=== PATIENT | female | born 1985 | race Caucasian/White ===

== ENCOUNTER → 2019-01-10 10:19 | Outpatient (CLI) | payer OTHER, SELFPAY ==
[2019-01-10 11:56] LABS: hCG Titer Quant., Serum 21428 mIU/mL (1-3)
== END ==
PROVIDERS: Nurse Practitioner Women's Health; Family Provider Family Medicine; PCP Family Medicine; Referring Provider Obstetrics & Gynecology; Visit Provider Obstetrics & Gynecology
DX: O20.0 Threatened abortion (principal); Z3A.00 Weeks of gestation of pregnancy not specified
CPT/HCPCS: 36415; 84702

== ENCOUNTER → 2019-01-18 07:54 | Outpatient (CLI) | payer OTHER, SELFPAY ==
--- NOTE | 2019-01-18 08:00 | US_ITS ---
STUDY: FIRST TRIMESTER OBSTETRICAL ULTRASOUND REASON FOR EXAM: Female, 33 years old viability. LMP: November 17, 2018. TECHNIQUE: Transabdominal and Transvaginal TECHNICAL QUALITY: Adequate. PRIOR ULTRASOUND: None. FINDINGS: There is visualization of a single gestational sac in a normal intrauterine position. The mean sac diameter (MSD) measures 1.22 cm, indicating an estimated gestational age (EGA) of 5 weeks, 6 days. The gestational sac is irregular and filled with debris. I suspect subchorionic bleed surrounding. There is no demonstrated yolk sac. The placenta is non-visualized. There is no demonstrated embryo ( pole). The uterus measures 8.2 cm x 4 cm x 3.6 cm. There is no demonstrated uterine fibroid. The cervix is closed. The right ovary measures 3 cm x 2.3 cm x 1.5 cm. There is no right ovarian cyst. There is no visualized right adnexal mass or complex lesion. The left ovary measures 3.6 cm x 2.5 cm x 1.7 cm. There is no left ovarian cyst. There is no visualized left adnexal mass or complex lesion. There is no fluid in the cul de sac. US/Init OB < 14Wks US IMPRESSION: Irregular intrauterine gestational sac with debris. Finding suggestive of in progress. Electronically Signed: Abelardo Hartley, at 11:18 EDT , Service support ,
== END ==
PROVIDERS: Family Provider Family Medicine; PCP Family Medicine; Referring Provider Obstetrics & Gynecology; Visit Provider Obstetrics & Gynecology
DX: Z34.90 Encounter for supervision of normal pregnancy, unspecified, unspecified trimester (principal); Z3A.00 Weeks of gestation of pregnancy not specified
CPT/HCPCS: 76801

== ENCOUNTER 2019-01-30 13:08 | Day surgery (SDC) | payer OTHER, SELFPAY ==
[2019-01-26 12:14] VITALS: BMI 21.5
--- NOTE | 2019-01-27 04:39 | PCM.HPOB.BLA ---
- Problem List (1) Incomplete Status: Acute Comment: failed cytotec plan suction d and c History and Physical Date of Admission: 01/30/19 Intake Vital Signs 01/26/19 Body Mass Index (BMI) 21.5 01/26/19 Height 5 ft 1.5 in 01/26/19 Weight: 115 lb 8 oz 01/26/19 Body Mass Index (BMI) 21.4 01/26/19 Blood Pressure 116/82 H Intake Visit Reasons: rescan missed AB Chief Complaint: SAB Follow Up Chemist Internship Required: No Is patient in pain?: No Allergies No Known Allergies Allergy (Verified 01/26/19 12:13) Medications misoprostol 200 mcg tablet 800 mcg PO .complex #4 tab 01/22/19 [Rx Confirmed 01/26/19] oxycodone-acetaminophen 5 mg-325 mg tablet 1 tab PO Q4H PRN #20 tab 01/22/19 [Rx Confirmed 01/26/19] Is last menstrual period known: No Post menopausal: No Patient : No : No PFSH Medical History No significant past medical history (Acute) Surgical History No significant past surgical history (Acute) Family History Grandmother Breast cancer Grandmother Breast cancer Social History (Updated 01/26/19 @ 22:24 by Holly Ocampo MD) Smoking Status: Never smoker alcohol intake: never substance use type: does not use HPI rescan missed AB: Details: JOYCE AMANDA is a 33 year old who presents for follow up scan and has persistent iup. she has taken two doses of cytotec and had some bleeding but no passage of tissue.. she denies fever. Pregancy History 1 Elective abortions Hx Para Spontaneous abortions Hx # Term Pregnancies Ectopic pregnancies Hx # Pregnancies Multiple births # of living children ROS Const Constitutional: Denies fatigue, fever(s), headache(s), increased appetite, poor appetite, weight gain or weight loss ENT ENT: Denies dizziness or dry mouth Cardio Card: Denies chest pain Resp Resp: Denies cough or dyspnea GI GI: Reports as per HPI; denies abdominal pain, constipation, nausea or vomiting Musc Musc: Denies joint pain, back pain or muscle weakness Skin Skin/Breast: Denies hair loss, change in hair, dry skin, breast lump, breast pain or breast skin changes Neuro Neuro: Denies dizziness Psych Psych: Denies anxiety or depression Endo Endo: Denies cold intolerance, excessive sweating, heat intolerance or increased thirst Jaron/Lymph Hematologic/Lymphatic: Denies easy bleeding, Denies easy bruising, Denies enlarged lymph nodes Exam Const General: cooperative, healthy appearing, comfortable, no acute distress, well developed Nutritional Appearance: average body habitus Orientation: alert [facility] Head: normal to inspection, normocephalic Ears: hearing grossly normal bilaterally, external ears normal Nose: external nose normal, nares normal Face and sinus: normal facial exam Neck Neck: normal visual inspection, no lymphadenopathy, trachea midline Thyroid: thyroid normal Chest Chest palpation & inspection: normal inspection of the chest Resp Effort & Inspection: normal respiratory effort Auscultation: clear to auscultation bilaterally Cardio Rate: regular rate Rhythm: regular rhythm Heart Sounds: S1 normal, S2 normal GI Inspection: normal to inspection, non-distended Palpation: soft, no hepatosplenomegaly General: bladder normal to palpation External Female Exam: normal external appearance, normal appearance of the urethra Urethra: normal appearance of the urethra, normal palpation, no discharge Speculum Exam - Vagina: normal appearance of the vagina, normal vaginal discharge Speculum Exam - Cervix: normal appearance of the cervix, nontender Bimanual Exam- Vagina & Uterus: normal bimanual exam, normal vaginal palpation, uterine size normal, bladder normal to palpation, uterine shape normal, No cervical tenderness, uterine mobility normal, uterine consistency normal, normal cervical palpation, uterus non-tender Bimanual Exam- Adnexa, other: normal adnexae, adnexae mobile, no adnexal masses, pelvic support normal Pelvic Support: normal Musc Cervical Spine: other Other: gross motor intact no deficits, full bilateral strength Skin General: no rashes or lesions noted Neuro General: alert, awake, moves all extremities, no focal motor deficits Motor: muscle tone normal throughout Extrem General: normal to inspection, no pedal edema Psych Appearance: grossly normal Mental Status: mental status grossly normal Affect: normal affect Speech and Movement: speech and movement normal Assessment & Plan Problems 1. Incomplete O03.4 failed cytotec plan suction d and c Plan After discussing the patient's diagnosis and treatment plan options, patient wishes to proceed with surgical management. I have discussed with the patient the risks, benefits, and alternatives of the procedure which include but are not limited to risks of anesthesia, bleeding, infection, possible damage to bowel, bladder, or surrounding vasculature which could lead to additional surgery to evaluate any complications. Patient agrees to procedure and wishes to proceed. Coding Level of Care Code No Charge Diagnoses Incomplete O03.4
[2019-01-30 13:36] LABS: Hematocrit 40.4 % (37-47); Hemoglobin 13.8 g/dL (12.0-15.0); Mean Corp Hgb Conc 34.2 g/dL (32-36); Mean Corpuscular Hgb 28.7 pg (27.0-32.0); Mean Platelet Vol. 10.3 fl (6.2-12.0); Platelet Count 169 K/mm3 (150-450); RBC Distribution Width CV 11.8 % (11.6-14.6); RBC Distribution Width SD 35.8 fl (35.1-43.9); Red Blood Count 4.81 M/mm3 (4.2-5.4); White Blood Count 8.6 K/mm3 (4.4-11.0)
[2019-01-30 13:41] VITALS: BP 109/66; PULSE 60; RESP 16; TEMP 36.5; O2SAT 99; BMI 21.7
[2019-01-30] MEDS: Lactated Ringers 1,000 ML 100 ML IV (14:12)
[2019-01-30] MEDS: Doxycycline 100 MG CAPSULE PO (14:23)
--- NOTE | 2019-01-30 14:33 | PCM.OPRPT ---
Problem List (1) Incomplete Status: Acute Comment: failed cytotec plan suction d and c Report of Operation Date of Procedure: 01/30/19 Pre-Operative Diagnosis: incomplete Post-Operative Diagnosis: same Surgery/Procedure Performed:: suction d and c Description of Surgical Findings:: 7 week size Type of Anesthesia:: Local MAC Special Medications: none Specimen's removed: poc Drains: none Estimated Blood Loss (mL): 50 Fluids Replaced: crystalloid Description of Procedure: Patient was taken to the operating room and placed under MAC local anesthesia. She was prepped and draped in the normal sterile fashion the dorsal lithotomy position. Bladder was drained of clear urine and anterior lip of the cervix was grasped and the uterus sounded to 7 cm. Cervix was progressively dilated to allow passage of a 1 mm suction curette. Progressive passes were made removing the retained products of conception without complication. Sharp curettage confirmed complete removal of the retained products. A stitch was used to sew the anterior lip of the cervix where the tenaculum site was that had some bleeding. All instruments were removed from the vagina and excellent hemostasis was noted and the patient was taken to recovery in stable condition. Grafts/Implants Used: none - Complications none Multi Select Codes - Urinary/Genital Urinary/Genital CPT Codes: 03222 Trmt of incomplete Ab, any TM
--- NOTE | 2019-01-30 14:35 | DCINST_ITS ---
Discharge Diet: No Restrictions Discharge Activity: Return to Normal Activity, May Shower, May Take a Tub Bath Allergies/Adverse Reactions: Allergies No Known Allergies Allergy (Verified 01/30/19 13:40) Medications to take at Discharge Naproxen [Naprosyn] 250 - 500 mg PO Q8H PRN PRN #30 tab 01/30/19 The following prescriptions were given: Naproxen [Naprosyn] 250 - 500 mg PO Q8H PRN PRN #30 tab PRN Reason: MILD PAIN Transmission Status: Pending to [facility] [place], [place] [address] Birdie Primary Care Physician: Cee Gar MD [Primary Care Provider] - Test Results: Test results from this visit will be discussed in further detail at your follow- up appointment, if applicable. Please Follow Up With: Holly Ocampo MD - [phone]
--- NOTE | 2019-01-30 14:50 | POC_PTH ---
PATIENT: JOYCE AMANDA LOC: [facility] – [place] U#:[id number] AGE/SX: ROOM: RE01/30/[address]: Dr. Holly Ocampo MD : 1985 BED: DIS: 01/30/2019 SPEC #: [id number] RECD: 01/31/19 08:31 STATUS: CORRINE CALIXTO #: [id number] CASIMIRO: 01/30/19 14:[address]: Holly Ocampo DEPT: SURGICAL PATHOLOGY RECD BY: Phong Neal ENTERED: 01/31/19 09:41 SP TYPE: PROD CONC OTHR DR: Dr. Cee Gar MD Tissues: Product of conception, NOS Procedures: Surgery Specimen Level IV HEADER OPERATION: Dilation and curettage, suction PRE-OP DIAGNOSIS: Failed Cytotec plan, suction D & C TISSUE SUBMITTED: Products of conception MICROSCOPIC DIAGNOSIS Endometrium, curettage: Chorionic villi, decidualized stroma and trophoblastic cells consistent with products of conception. AM:james 02/01/19 MICROSCOPIC DESCRIPTION Slides are reviewed. GROSS DESCRIPTION Received in fixative is one container labeled with the patient's name and designated products of conception. The specimen consists of multiple irregular fragments of rush-pink soft tissue that in aggregate measure 5 x 4 x 0.5 cm. tissue is not identified. The entire specimen is submitted in three cassettes. / SJ:james 01/31/19 TC:5 CPT: 64347
--- NOTE | 2019-01-30 15:57 | SUR.OPER ---
pt in lithotomy position with yellow fin stirrups
--- NOTE | 2019-01-30 16:09 | SUR.OPER ---
STRAIGHT CATHETER WITH # 16 FOR 25CC OF CLEAR YELLOW URINE
[2019-01-30 16:13] VITALS: BP 102/68; BP 109/66; PULSE 91; RESP 16; TEMP 36.3; O2SAT 100
[2019-01-30 16:20] VITALS: BP 106/72; BP 109/66; PULSE 94; RESP 16; O2SAT 100
[2019-01-30 16:25] VITALS: BP 107/70; BP 109/66; PULSE 83; RESP 16; O2SAT 100
[2019-01-30 16:30] VITALS: BP 109/66; BP 109/70; PULSE 78; RESP 16; TEMP 36.3; O2SAT 100
[2019-01-30 17:00] VITALS: BP 109/66
== END 2019-01-30 17:19 | disposition home or self-care (01) ==
LOC: SDC 13:09 → AC 13:10
PROVIDERS: Family Provider Family Medicine; PCP Family Medicine; Referring Provider Obstetrics & Gynecology; Visit Provider Obstetrics & Gynecology
PROC: (CPT 59812; principal; 2019-01-30 14:35)
DX: O03.4 Incomplete spontaneous abortion without complication (principal); F41.9 Anxiety disorder, unspecified
CPT/HCPCS: 59812; 85027; 86850; 86900; 86901; 88305; J7120

== ENCOUNTER → 2019-04-04 10:26 | Outpatient (CLI) | payer OTHER, SELFPAY ==
[2019-02-14 11:40] VITALS: BMI 21.7
[2019-04-04 11:14] LABS: hCG Titer Quant., Serum 5 mIU/mL (1-3)
== END ==
PROVIDERS: Family Provider Family Medicine; PCP Family Medicine; Referring Provider Obstetrics & Gynecology; Visit Provider Obstetrics & Gynecology
DX: Z87.59 Personal history of other complications of pregnancy, childbirth and the puerperium (principal)
CPT/HCPCS: 36415; 84702

== ENCOUNTER → 2019-04-05 08:00 | Outpatient (CLI) | payer OTHER, SELFPAY ==
[2019-02-14 11:40] VITALS: BMI 21.7
[2019-04-05 09:23] LABS: hCG Titer Quant., Serum 5 mIU/mL (1-3)
[2019-04-08 14:56] LABS: Anti-Cardiolipin Ab, IgA, Qn < 9 APL U/mL (0-11); Anti-Cardiolipin Ab, IgG, Qn < 9 GPL U/mL (0-14); Anti-Cardiolipin Ab, IgM, Qn < 9 MPL U/mL (0-12)
== END ==
PROVIDERS: Family Provider Family Medicine; PCP Family Medicine; Referring Provider Obstetrics & Gynecology; Visit Provider Obstetrics & Gynecology
DX: O03.4 Incomplete spontaneous abortion without complication (principal)
CPT/HCPCS: 36415; 84702; 86147

== ENCOUNTER → 2019-10-10 | Outpatient (CLI) | payer OTHER, SELFPAY ==
[2019-10-10 09:29] VITALS: BMI 21.7
[2019-10-10 18:15] LABS: Amphetamine Urine VISTA NEGATIVE (<1000 ng/mL); Barbiturate Urine VISTA NEGATIVE (< 200 ng/mL); Benzodiazepine Urine VISTA NEGATIVE (< 200 ng/mL); Cocaine Urine VISTA NEGATIVE (< 300 ng/mL); Ecstacy Urine VISTA NEGATIVE (< 500 ng/mL); Methadone Urine VISTA NEGATIVE (< 300 ng/mL); PCP Urine VISTA NEGATIVE (< 25 ng/mL); THC Urine VISTA NEGATIVE (< 50 ng/mL); Vista UDS pH Range 6
[2019-10-10 20:09] LABS: Chlamydia Trachomatis by PCR Negative (Negative); Neisserai gonorrhoeae by PCR Negative (Negative); Probe Check PASS; Sample Adequacy Control PASS; Specimen Processing Control PASS
[2019-10-18 16:27] LABS: HPV APTIMA, High Risk Negative (Negative)
== END | disposition home or self-care (01) ==
LOC: LABSPEC 17:17
PROVIDERS: PCP Family Medicine; Referring Provider Obstetrics & Gynecology; Visit Provider Obstetrics & Gynecology
DX: Z12.4 Encounter for screening for malignant neoplasm of cervix (principal); Z34.90 Encounter for supervision of normal pregnancy, unspecified, unspecified trimester
CPT/HCPCS: 80307; 87086; 87088; 87491; 87591; 87624; 88175; G0145

== ENCOUNTER → 2019-10-26 09:49 | Outpatient (CLI) | payer OTHER, SELFPAY ==
[2019-10-26 09:42] VITALS: BMI 21.7
[2019-10-26 10:19] LABS: Absolute Lymphocyte Count 1.31 X10^3/uL (0.83-4.51); Absolute Neutrophil Count 6.3 X10^3/uL (2.0-7.7); Basophil# 0.01 X10^3/uL; Basophil% 0.1 % (0-1); Eosinophil# 0.05 X10^3/uL; Eosinophils% 0.6 % (0-5); Hematocrit 37.9 % (37-47); Hemoglobin 13.3 g/dL (12.0-15.0); Lymphocyte # 1.31 X10^3/ul (4.0); Mean Corp Hgb Conc 35.1 g/dL (32-36); Mean Corpuscular Volume 82.8 fL (81-99); Mean Platelet Vol. 10.8 fl (6.2-12.0); Monocyte# 0.52 X10^3/uL; Monocyte% 6.4 % (0-10); NRBC Flagged by Analyzer 0 % (0-5); Neutrophil # 6.26 X10^3/uL (2.7-7.7); Neutrophil % 76.7 % (47-70); Platelet Count 195 K/mm3 (150-450); RBC Distribution Width CV 11.9 % (11.6-14.6); RBC Distribution Width SD 35.6 fl (35.1-43.9); Red Blood Count 4.58 M/mm3 (4.2-5.4); White Blood Count 8.2 K/mm3 (4.4-11.0)
[2019-10-26 11:13] LABS: HIV - WCH Non-Reactive (Nonreactive); Hepatitis B Surface Antigen Non-Reactive (Nonreactive); Hepatitis C Antibody Non-Reactive (Nonreactive); Rubella IgG 98.7 IU/mL
[2019-11-01 02:04] LABS: Rapid Plasmin Reagin (RPR) NONREACTIVE (NONREACTIVE)
== END ==
PROVIDERS: PCP Family Medicine; Referring Provider Obstetrics & Gynecology; Visit Provider Obstetrics & Gynecology
DX: O03.4 Incomplete spontaneous abortion without complication (principal)
CPT/HCPCS: 85025; 86592; 86703; 86762; 86803; 86850; 86900; 86901; 87340

== ENCOUNTER → 2019-12-21 12:15 | Outpatient (CLI) | payer OTHER, SELFPAY ==
[2019-11-23 10:01] VITALS: BMI 21.7
--- NOTE | 2019-12-21 12:17 | US_ITS ---
STUDY: SECOND AND THIRD TRIMESTER OBSTETRICAL ULTRASOUND REASON FOR EXAM: Female, 34 years old anatomy LMP: 07/31/2019. TECHNIQUE: Transabdominal TECHNICAL QUALITY: Adequate. PRIOR ULTRASOUND: None. FINDINGS: There is a single intrauterine fetus. The fetus is in a transverse lie with the head on the maternal right side. There is demonstrated cardiac activity with a heart rate of 155 bpm. There is a normal amniotic fluid volume. The largest amniotic fluid pocket measures 4.5 cm x 3.7 cm. The amniotic fluid index (CÉSAR) is within normal limits. The placenta is posterior in location and is not low lying. There are Grade 0 placental changes. The cervix measures 4.1 cm in length. The bilateral adnexal regions are normal. BIOMETRY: BPD: 4.94 cm: 20 weeks, 6 days HC: 18.18 cm: 20 weeks, 3 days AC: 15.71 cm: 20 weeks, 6 days FL: 3.32 cm: 20 weeks, 2 days CI: 81% FL/BPD: 67% FL/HC: FL/AC: 21% HC/AC: 1.15 age by current US: 20 weeks, 4 days. ANGELIA by current US: 05/05/2020. Estimated weight: 367 grams, +/- 54 grams, 48 %. Age by LMP: 20 weeks, 3 days. ANGELIA by LMP: 05/06/2020. ANATOMY: Gender: Male Cranium: Normal lateral ventricles. Normal choroid plexus. Normal cerebellum. Normal cisterna magna. Normal face, nose and lips. Chest: Normal 4-chamber heart. Echogenic foci are seen most likely representing the cord at 10 and 8. Abdomen/Pelvis: Normal diaphragm. Normal stomach. Normal abdominal wall. Normal cord insertion. Normal 3 vessel cord. Minimal fullness of the bilateral renal pelves although this measures within normal limits. Normal bladder. Spine: Normal cervical spine. Normal thoracic spine. Normal lumbar spine. Normal sacrum. Extremities: Normal bilateral upper extremities. Normal bilateral lower extremities. US/OB Anatomy Scan IMPRESSION: Single live intrauterine gestation with a mean gestational age of 20 weeks and 4 days. Electronically Signed: Abelardo Hartley, at 13:44 EDT , Service support ,
== END ==
PROVIDERS: PCP Family Medicine; Referring Provider Obstetrics & Gynecology; Visit Provider Obstetrics & Gynecology
DX: Z36.9 Encounter for antenatal screening, unspecified (principal)
CPT/HCPCS: 76805

== ENCOUNTER → 2020-02-13 08:20 | Outpatient (CLI) | payer OTHER, SELFPAY ==
[2020-01-21 11:51] VITALS: BMI 25.2
[2020-02-13 08:53] LABS: Absolute Lymphocyte Count 1.18 X10^3/uL (0.83-4.51); Absolute Neutrophil Count 8.3 X10^3/uL (2.0-7.7); Basophil# 0.02 X10^3/uL; Basophil% 0.2 % (0-1); Eosinophil# 0.04 X10^3/uL; Eosinophils% 0.4 % (0-5); Hematocrit 36.3 % (37-47); Hemoglobin 12.5 g/dL (12.0-15.0); Lymphocyte # 1.18 X10^3/ul (4.0); Lymphocyte % 11.7 % (19-41); Mean Corp Hgb Conc 34.4 g/dL (32-36); Mean Corpuscular Hgb 30.3 pg (27.0-32.0); Mean Corpuscular Volume 88.1 fL (81-99); Mean Platelet Vol. 10.8 fl (6.2-12.0); Monocyte# 0.46 X10^3/uL; Monocyte% 4.6 % (0-10); NRBC Flagged by Analyzer 0 % (0-5); Neutrophil # 8.34 X10^3/uL (2.7-7.7); Neutrophil % 82.7 % (47-70); POSITIVE COUNT YES; Platelet Count 169 K/mm3 (150-450); RBC Distribution Width CV 12.2 % (11.6-14.6); RBC Distribution Width SD 39.4 fl (35.1-43.9); Red Blood Count 4.12 M/mm3 (4.2-5.4); White Blood Count 10.1 K/mm3 (4.4-11.0)
[2020-02-13 08:57] LABS: Differential Indicated SCAN CRITERIA MET
[2020-02-13 09:01] LABS: Glucose Challenge Gest 1H 50g 153 mg/dL (70-140)
[2020-02-13 09:17] LABS: Differential Comment SCANNED
== END ==
PROVIDERS: PCP Family Medicine; Referring Provider Obstetrics & Gynecology; Visit Provider Obstetrics & Gynecology
DX: Z34.90 Encounter for supervision of normal pregnancy, unspecified, unspecified trimester (principal); Z13.1 Encounter for screening for diabetes mellitus
CPT/HCPCS: 36415; 82950; 85025

== ENCOUNTER → 2020-02-18 06:49 | Outpatient (CLI) | payer OTHER, SELFPAY ==
[2020-02-13 08:49] VITALS: BMI 26.0
[2020-02-18 07:32] LABS: Glucose GTT-Gestation. Fasting 77 mg/dL (<105)
[2020-02-18 08:44] LABS: Glucose GTT-Gestational 1 Hr 137 mg/dL (<190)
[2020-02-18 09:58] LABS: Glucose GTT-Gestational 2 Hr 142 mg/dL (<165)
[2020-02-18 10:53] LABS: Glucose GTT-Gestational 3 Hr 157 L (<145)
== END ==
PROVIDERS: PCP Family Medicine; Referring Provider Obstetrics & Gynecology; Visit Provider Obstetrics & Gynecology
DX: Z13.1 Encounter for screening for diabetes mellitus (principal)
CPT/HCPCS: 36415; 82951; 82952

== ENCOUNTER → 2020-04-11 | Outpatient (CLI) | payer OTHER, SELFPAY ==
[2020-04-11 09:07] VITALS: BMI 27.3
== END | disposition home or self-care (01) ==
LOC: LABSPEC 15:06
PROVIDERS: PCP Family Medicine; Referring Provider Obstetrics & Gynecology; Visit Provider Obstetrics & Gynecology
DX: Z34.90 Encounter for supervision of normal pregnancy, unspecified, unspecified trimester (principal)
CPT/HCPCS: 87081

== ENCOUNTER → 2020-04-18 09:31 | Outpatient (CLI) | payer OTHER, SELFPAY ==
[2020-04-11 09:07] VITALS: BMI 27.3
[2020-04-18 08:50] VITALS: BMI 27.2
--- NOTE | 2020-04-18 09:37 | US_ITS ---
STUDY: SECOND AND THIRD TRIMESTER OBSTETRICAL ULTRASOUND - LIMITED REASON FOR EXAM: Female, 34 years old GROWTH LMP: 07/31/2019. PRIOR ULTRASOUND: Comparison is made with prior study dated 12/21/2019. TECHNIQUE: Transabdominal TECHNICAL QUALITY: Adequate. FINDINGS: There is a single intrauterine fetus. The fetus is in a cephalic presentation. There is demonstrated cardiac activity with a heart rate of 158 bpm. There is increased amniotic fluid volume consistent with polyhydramnios. The largest amniotic fluid pocket measures 8.7 cm. The amniotic fluid index (CÉSAR) is 24.7 cm. The placenta is posterior in location and is not low lying. There are Grade 2 placental changes. BIOMETRY: BPD: 9 cm: 36 weeks, 1 days HC: 32.8 cm: 37 weeks, 1 days AC: 33.6 cm: 37 weeks, 3 days FL: 7.1 cm: 36 weeks, 4 days Age by LMP: 37 weeks, 3 days. ANGELIA by LMP: 05/06/2020. age by prior US: 37 weeks, 4 days. ANGELIA by prior US: 05/05/2020. age by current US: 36 weeks, 6 days. ANGELIA by current US: 05/10/2020. Estimated weight: 3142 grams, +/- 471 grams, 52 percentile. US/OB Limited With Biometrics IMPRESSION: Single live intrauterine gestation with a mean gestational age of 37 weeks and 4 days. The measurements obtained today following within the normal expected range. Elevated amniotic fluid index of 24.7 cm. Electronically Signed: Abelardo Hartley MD at 12:15 EST , Service support ,
== END ==
PROVIDERS: PCP Family Medicine; Referring Provider Obstetrics & Gynecology; Visit Provider Obstetrics & Gynecology
DX: O26.843 Uterine size-date discrepancy, third trimester (principal); Z3A.37 37 weeks gestation of pregnancy
CPT/HCPCS: 76816

== ENCOUNTER 2020-04-30 18:57 | Inpatient (IN) | payer OTHER, SELFPAY ==
[2020-04-25 09:05] VITALS: BMI 27.5
[2020-04-30] VITALS (7 sets, daily range): BP systolic 104–114; BP diastolic 68–82; PULSE 95–101; TEMP 36.2–36.9; O2SAT 97–98; BMI 28.0
[2020-04-30] MEDS: Lactated Ringers 1,000 ML 50 ML IV (19:32)
[2020-04-30 19:55] LABS: Absolute Lymphocyte Count 1.62 X10^3/uL (0.83-4.51); Absolute Neutrophil Count 9.9 X10^3/uL (2.0-7.7); Basophil# 0.03 X10^3/uL; Basophil% 0.2 % (0-1); Eosinophil# 0.03 X10^3/uL; Eosinophils% 0.2 % (0-5); Hematocrit 35.3 % (37-47); Hemoglobin 12.5 g/dL (12.0-15.0); Lymphocyte # 1.62 X10^3/ul (4.0); Mean Corp Hgb Conc 35.4 g/dL (32-36); Mean Corpuscular Hgb 30.2 pg (27.0-32.0); Mean Corpuscular Volume 85.3 fL (81-99); Mean Platelet Vol. 11.4 fl (6.2-12.0); Monocyte% 6.4 % (0-10); NRBC Flagged by Analyzer 0 % (0-5); Neutrophil % 79.4 % (47-70); Platelet Count 155 K/mm3 (150-450); RBC Distribution Width SD 39.8 fl (35.1-43.9); Red Blood Count 4.14 M/mm3 (4.2-5.4); White Blood Count 12.5 K/mm3 (4.4-11.0)
--- NOTE | 2020-04-30 20:01 | HP.PCM_ITS ---
- Problem List (1) Encounter for induction of labor Status: Acute (2) 36 weeks gestation of Status: Acute Comment: electronic covid test ordered 04/11/20 RAPID for IOL (3) Abnormal glucose affecting Status: Acute Comment: normal 3 hr GTT (4) Anxiety Status: Acute Comment: encouraged counseling, no meds at present (5) History of recurrent miscarriages Status: Acute Comment: neg apl testing. both early. (6) Polyhydramnios affecting Status: Acute Comment: IoL at 39 weeks (7) Status: Acute Qualifiers: Comment: genetic, carrier, and ntd screening declined. neg. apl FU; normal anatomy (8) Supervision of normal first Status: Acute Qualifiers: Comment: PRR ANGELIA 05/06/20 boy Fam [facility] (9) Vaccine for [id number]-xiopddagx, combined Status: Acute Comment: 02/13/20 History and Physical Date of Admission: 04/30/20 Intake Vital Signs 04/25/20 Height 5 ft 1.5 in 04/25/20 Weight: 148 lb 04/25/20 BMI 27.5 04/25/20 BP 104/80 Intake Visit Reasons: 38WK OB Chief Complaint: est ob [employer] Judge Required: No Is patient in pain?: No Allergies No Known Allergies Allergy (Verified 04/25/20 09:06) Medications vitamin#30 30 mg iron-10 mg iron-folic acid 1 mg-omg3 capsule cap PO 04/05/19 [History Confirmed 04/25/20] Last Menstral Period: 07/31/19 Zika: Zika virus screening: Negative : No PFSH PFSH Medical History Anxiety (Acute) History of miscarriage (Acute) No significant past medical history (Acute) Surgical History S/P dilation and curettage (Acute) Family History Grandmother Breast cancer Grandmother Breast cancer Social History (Updated 04/25/20 @ 09:[address] Holly Ocampo MD) Smoking Status: Never smoker alcohol intake: current details: pre substance use type: does not use caffeine: Yes what type of physical activity do you participate in: walking frequency: 5-6 times per week seatbelt use: always do you feel safe at home: Yes additional social history: Patient works at [employer]- works at [employer] Pregancy History 3 Elective abortions Hx Para 0 Spontaneous abortions 2 Hx # Term Pregnancies Ectopic pregnancies Hx # Pregnancies Multiple births # of living children HPI 38WK OB : Details: JOYCE AMANDA is a 34 year old who presents for routine OB visit. OB Visit ANGELIA Calculator Estimated Delivery Date Method Current WG Current Estimate 05/06/20 LMP (Certain) 38w 3d Other Estimates 05/01/20 Ultrasound #1 39w 1d Expected Delivery Route/Plan Labor Preferences- CB/BF classes: no labor support person: [place] labor intervention preferences: open to standard interventions pain management options preferred: epidural cut cord/dad catch: cord : yes PP control planned: [] discussed possible routes of delivery and associated risks: [] special requests: [] Specific Issue/Plans flu vaccine: declined tdap vaccine: yes rhogam: na LARC form signed: yes Problem list reviewed and updated with the most current plan of care details and appropriate orders placed. Relevant counseling for the gestational age provided. Continue routine care and follow up unless otherwise noted in visit notes/problem list details Initial Weight: 122 lb Date EGA Weight BP Urine Prot Glucose FHR FuHt Pres Dilation Effaced St Visit Note 10/10/19 10w 1d 122 lb (+0 oz) 112/76 170 SM- CRL 3.6cm cons with lmp 10/26/19 12w 3d 122 lb 8 oz (+8 oz) 100/60 160 SM- resolved hematoma, reassuring and no vb cramping 11/23/19 16w 3d 125 lb (+3 lb) 112/70 Negative Negative 150 GP - no cramping or bleeding. Anatomy US at hospital ordered today. 12/21/19 20w 3d 129 lb 8 oz (+7 lb 8 oz) 108/60 160 GP - no cramping, LOF, VB, DFM. Anatomy scan done today. It's a boy! 01/21/20 24w 6d 136 lb 2 oz (+14 lb 2 oz) 102/70 Negative Negative 150 25 SM- no vb lof good fm no regular ctx cbc gct next visit declines flu vaccine 02/13/20 28w 1d 140 lb (+18 lb) 108/62 Negative Negative 153 28 Transverse MH-No VB, LOF. Good FM. 28 wk labs, tdap and larc 02/29/20 30w 3d 142 lb 1 oz (+20 lb 1 oz) 102/70 Negative Negative 130 30 GP - no ctx, LOF, VB, DFM. Denies complaints. 03/14/20 32w 3d 143 lb 8 oz (+21 lb 8 oz) 98/74 Negative Negative 145 32 Cephalic GP - no LOF, VB, DFM, ctx. Still having stretching pains in ribs. 03/26/20 34w 1d 146 lb 4 oz (+24 lb 4 oz) 120/80 Negative Negative 141 34 MH-No VB, LOF. Good FM. No concerns 04/11/20 36w 3d 147 lb (+25 lb) 92/60 Negative Negative 145 38 Cephalic 1 70 -1 SM- no vb lof good fm no regular ctx fundal height high will cheak growth us 04/18/20 37w 3d 146 lb 8 oz (+24 lb 8 oz) 106/70 Negative Negative 155 39 Cephalic 1 70 -1 GP - no LOF, VB, DFM, reg ular ctx. Growth US scheduled due to measuring 2 weeks ahead. Cervix still 1cm 04/25/20 38w 3d 148 lb (+26 lb) 104/80 Negative Negative 150 40 Cephalic 1 70 -1 SM- no vb lof good fm no regular ctx ACOG First Trimester First Trimester: Desire for , Alcohol, Tobacco Cessation, Illicit/Recreational Drug/Substance Use, Intimate Partner Violence, Barriers to care, Unstable Housing, Communication Barriers, Environmental/Work Hazards, Anticipated Course of Care, Toxoplasmosis Precations, Use of Any medications, Sexual activity, Exercise, Dental Care, Sauna/Hot tub use, Seat Belt use, Childbirth classes/Hospital facilities, , Travel, Indications for US and Screening for Aneuploidy Second Trimester Second Trimester: Signs and Symptoms of Labor, Selecting a care provider, Reproductive Life Planning, Care Planning, Depression/Anxiety and Intimate Partner Violence; discussed Tobacco Cessation Diagnostics Diagnostics Diagnostics Gest Glucose Tolerance MG/DL 02/18/20 Glucose 1 Hr 50 gm 153 mg/dL (70-140) H 02/13/20 Hgb 12.5 g/dL (12.0-15.0) 02/13/20 Hct 36.3 % (37-47) L 02/13/20 Details: HIV: Urine Culture: Sequential Screen: NIPT Screen: ROS Const Reports system reviewed and no additional complaints, except as documented Card Reports system reviewed and no additional complaints, except as documented Resp Reports system reviewed and no additional complaints, except as documented GI Reports system reviewed and no additional complaints, except as documented, Reports nausea Reports system reviewed and no additional complaints, except as documented Musc Reports system reviewed and no additional complaints, except as documented all other systems reviewed and negative Exam Const General: cooperative, healthy appearing, comfortable [facility] Head: normal to inspection Nose: external nose normal Face and sinus: normal facial exam Neck Neck: normal visual inspection, full ROM, no lymphadenopathy Thyroid: thyroid normal Chest Chest palpation & inspection: normal inspection of the chest Resp Effort & Inspection: normal respiratory effort GI Inspection: normal to inspection Palpation: soft, other (gravid uterus) Other: infant vertex and appropriate size for gestational age Other: Cervical Exam: 1-70/-1 soft mid position Extrem General: pedal edema Results POC Urinalysis 2 Dip (Clinic) Office Urine Glucose Negative Last Edit by Marii Peña on 04/25/20 09:0 9 Office Urine Protein Negative Last Edit by Marii Peña on 04/25/20 09:0 9 Assessment & Plan Problems 1. Anxiety F41.9 encouraged counseling, no meds at present 2. Supervision of normal first Z34.00 PRR ANGELIA 05/06/20 boy Sophia [facility] 3. Z34.90 genetic, carrier, and ntd screening declined. neg. apl FU; normal anatomy 4. History of recurrent miscarriages N96 neg apl testing. both early. 5. Vaccine for hfrivjbput-pwlhhln-ybktwwplv, combined Z23 02/13/20 6. Abnormal glucose affecting O99.810 normal 3 hr GTT 7. 36 weeks gestation of Z3A.36 electronic covid test ordered 04/11/20 RAPID for IOL 8. Polyhydramnios affecting O40.9XX0 IoL at 39 weeks UPDATE- I have seen the patient and performed any clinically relevant updates to the history and physical exam. Katalina Omalley MD
[2020-04-30] MEDS: 0.9% Normal Saline Single 100 ML IV.SOLN. INTRA-UTER (20:41)
[2020-04-30] MEDS: Oxytocin 30 units/NS 500 ml 30 UNITS/500 ML IV.SOLN IV (22:31)
[2020-05-01] VITALS (51 sets, daily range): BP systolic 83–123; BP diastolic 46–85; PULSE 78–113; RESP 18; TEMP 36.2–38; O2SAT 97–100
[2020-05-01] MEDS: Lactated Ringers 500 ML 999 ML IV (01:06)
[2020-05-01] MEDS: fentaNYL-bupivacaine (epidural) 100 ML BAG EPIDURAL ×4 (02:25→17:55)
[2020-05-01] MEDS: Lactated Ringers 1,000 ML 200 ML IV ×5 (04:56→21:28)
[2020-05-01] MEDS: 0.9% Saline Lock 10 ML Syringe IV (13:50)
[2020-05-01] MEDS: Ondansetron 4 MG/2 ML Vial IV (13:50)
[2020-05-01] MEDS: Acetaminophen 500 MG Tablet PO (18:06)
--- NOTE | 2020-05-01 20:58 | PCM.PN.BLA ---
Progress Note Cervical exam performed at this time. On my exam, patient is 8 cm and -1 station. Cervix noted to be extremely swollen circumferentially. Patient was initially called 8 cm at 230 this afternoon. Discussed that based off of my current exam, she would meet criteria for arrest of dilation . Discussed with patient that given changing exam, I would be willing to allow more time to see if she makes further progress but with significant cervical swelling I am concerned that her pelvis is not adequate. The patient voices that she would prefer to proceed with a at this time. The risk, benefits, indications, and alternatives to the procedure were discussed the Patient including bleeding, infection, and visceral or vascular injury. The patient voices understanding and agrees to proceed. We bring delivery staff notified. status is reassuring. We will proceed with as soon as possible, however will allow additional time for OR turnover. STROKE Vital Signs/Narrative: Vital Signs Temp Pulse BP Pulse Ox 05/01/20 20:17 98.5 F 94 110/68 05/01/20 19:15 98.4 F 05/01/20 19:13 111 H 97 05/01/20 19:10 98.9 F 109 H 113/71 05/01/20 17:59 100.4 F H 93 120/58 L
--- NOTE | 2020-05-01 21:18 | PCM.OPRPT ---
Problem List (1) Encounter for induction of labor Status: Acute (2) 36 weeks gestation of Status: Acute Comment: electronic covid test ordered 04/11/20 RAPID for IOL (3) Abnormal glucose affecting Status: Acute Comment: normal 3 hr GTT (4) Anxiety Status: Acute Comment: encouraged counseling, no meds at present (5) History of recurrent miscarriages Status: Acute Comment: neg apl testing. both early. (6) Polyhydramnios affecting Status: Acute Comment: IoL at 39 weeks (7) Status: Acute Qualifiers: Comment: genetic, carrier, and ntd screening declined. neg. apl FU; normal anatomy (8) Supervision of normal first Status: Acute Qualifiers: Comment: PRR ANGELIA 05/06/20 boy Fam [place] (9) Vaccine for gaotskozej-vljgcxl-rxsjpsmoh, combined Status: Acute Comment: 02/13/20 Delivery Classification: MATTEO Final ANGELIA: 05/06/20 Gestational age: 39 Weeks and 2 Days stitch rubber: Rajani Pittman Type of Anesthesia:: Epidural Special Medications: Ancef 2g, Azithromycin 500mg Date of Procedure: 05/01/20 Pre-Operative Diagnosis: Induction of labor for polyhydramnios, arrest of dilation Post-Operative Diagnosis: Same, cephalopelvic disproportion Indications: 34-year-old G1, P0 at 39 weeks gestation admitted for induction of labor for polyhydramnios. The patient was induced with Barrios bulb Pitocin. She had made progress to 9 cm, but on my exam was found to be 8 cm with significant cervical swelling. She had initially been called 8 cm at 230 this afternoon. The patient was given the option of continued management versus proceeding with primary for arrest of dilation and voiced desire to proceed with delivery at this time. The risks, benefits, indications, and alternatives to the procedure were discussed with the patient including bleeding, infection, and visceral or vascular injury. Patient was understanding and agreed to proceed. Indications for : Sec. Arrest of Dilitation Description of Procedure: The patient is a G1, P0 at 39 weeks who presented for induction of labor for polyhydramnios and underwent primary for arrest of dilation. Spinal anesthesia was placed without difficulty. Barrios catheter was placed. The patient was placed in the dorsal supine position with leftward tilt. Patient was prepped and draped in the normal sterile fashion. Pfannenstiel skin incision was made with the scalpel and carried through to the underlying layer of fascia with the scalpel. Fascia was nicked in the midline and the incision extended laterally. The rectus bellies were dissected off superiorly and inferiorly with out complication both sharply and bluntly. The peritoneum was entered digitally. The incision was stretched and a low transverse uterine incision was made with the scalpel. The 's head was delivered atraumatically followed by the anterior and posterior shoulders without complication the rest of the delivered. The cord was clamped and cut and the infant was handed off to awaiting nurse. The placenta was delivered spontaneously immediately following and was noted to be intact and have a three-vessel cord. The uterus was exteriorized cleared of all clots and debris, and the incision was closed in a double layer closure using #1 Monocryl. The ovaries and fallopian tubes were noted to be within normal limits. The uterus was returned to the maternal abdomen and gutters were cleared of all clots and debris. The peritoneum was closed with 3-0 Monocryl in a running fashion. Gloves were changed prior to fascial closure. Fascia was closed with 0 PDS in a running fashion. Subcutaneous tissue was copiously irrigated and the skin was closed with 3-0 Monocryl in a subcuticular fashion. Mepilex dressing was applied without complication. Patient was taken to recovery in stable condition. As the head was not well engaged in the pelvis, I suspect cephalopelvic disproportion. I discussed with the patient that unless future children are significantly smaller, I would recommend that she undergo repeat section Amniotic Membrane Rupture Type: Artificial Amniotic Fluid Description: Clear Placenta Disposition: [facility] Drain: Barrios to straight drain Fluids Replaced: 1300 Esitmated Blood Loss (ml): 600 Infant Gender: Male (1 minute): 9 (5 minute): 10 Delayed cord clamping: Yes Antibiotic Given: Ancef 2 grams IV x1, Zithromax 500 mg/5 mL X1 Pt instructed on risks of surgery: Bleeding, Anesthesia Risks, Infection, Injury to surrounding structure(s) including bowel and bladder - Admit VTE Documentation VTE Present on Admission: No VTE Mechan Device Prophylaxis: SCD's VTE Pharm Prophylaxis ordered?: No Multi Select Codes - Urinary/Genital Urinary/Genital CPT Codes: 69002 Delivery [facility]
--- NOTE | 2020-05-01 21:24 | DCINST_ITS ---
Discharge Diet: No Restrictions Discharge Activity: May Not Drive - for 2 weeks or while taking narcotic pain meds., May Shower, May Take a Tub Bath - in 7 days. May resume sexual activity in: 4-6 weeks Lifting Restrictions: 20 pounds Additional Activity Instructions:: Nothing in the vagina for 4-6 weeks. You may return to work/school in 6 weeks. Call your doctor if your incision/area has: Continuous Slow Oozing, Sudden Increased Bleeding, Increased Pain/ Swelling, Increased Redness, Foul Smelling Discharge Call your doctor if you observe: Fever of 101 or Higher Suture Line Care: Avoid Pulling/Pushing, Avoid Pinching/Bending Additional Instructions: If you experience any of the following, contact your healthcare provider. * Bleeding that soaks a pad every hour for 2 hours * Fever 100.4 or higher * Unrelieved incision or abdominal pain * Swelling, redness, discharge or bleeding from your incision or episiotomy site * Your incision begins to separate * Problems urinating (including inability to urinate or burning while urinating). * Visual changes * Severe headache * Flu-like symptoms * Pain or redness in one of both of your breasts * Pain, warmth, tenderness or swelling in your legs, especially the calf area * Frequent nausea and vomiting * Symptoms of depression or anxiety If you experience any of the following, call 911 or go to the nearest Emergency Room. * Chest pain * Problems breathing * Seizure activity * Partial or complete paralysis of a body part, slurred speech, weakness or drooping of the face, or a sudden inability to walk or hold your balance Allergies/Adverse Reactions: Allergies No Known Allergies Allergy (Verified 04/25/20 09:06) Medications to take at Discharge vitamin#30 30 mg iron-10 mg iron-folic acid 1 mg-omg3 capsule 1 cap PO DAILY 04/05/19 Follow-Up: Call to make an appointment with your doctor for an incision check in 1-2 weeks. You will also need a 6 week post- follow up appointment. Test results from this visit will be discussed in further detail at your follow- up appointment, if applicable. Primary Care Physician: Cee Gar MD [Primary Care Provider] -
[2020-05-01] MEDS: Sodium Citrate/Citric Acid 30 ML UDC PO (21:29)
[2020-05-01] MEDS: Cefazolin 2 GM in 0.9% Normal Saline 100 ML IV (21:43)
[2020-05-01] MEDS: Oxytocin 30 units/NS 500 ml 30 UNITS/500 ML IV.SOLN 167 UNITS IV (23:15)
[2020-05-01] MEDS: Lactated Ringers 1,000 ML 100 ML IV (23:30)
[2020-05-02] VITALS (16 sets, daily range): BP systolic 86–118; BP diastolic 48–75; PULSE 82–99; RESP 16–18; TEMP 36.3–37; O2SAT 96–100
[2020-05-02] MEDS: Acetaminophen 500 MG Tablet 1000 MG PO ×4 (00:11→18:34)
[2020-05-02 03:34] LABS: Hematocrit 24.7 % (37-47); Hemoglobin 8.5 g/dL (12.0-15.0); Mean Corp Hgb Conc 34.4 g/dL (32-36); Mean Corpuscular Hgb 29.8 pg (27.0-32.0); Mean Corpuscular Volume 86.7 fL (81-99); Platelet Count 113 K/mm3 (150-450); RBC Distribution Width CV 12.9 % (11.6-14.6); RBC Distribution Width SD 40.6 fl (35.1-43.9); Red Blood Count 2.85 M/mm3 (4.2-5.4); White Blood Count 23.9 K/mm3 (4.4-11.0)
[2020-05-02] MEDS: Lactated Ringers 1,000 ML 999 ML IV (04:15)
[2020-05-02] MEDS: Ketorolac 30 MG/ML Syringe IV ×3 (04:41→18:34)
--- NOTE | 2020-05-02 08:05 | PCM.PN.OB ---
Patient Problems: Active and Suspected Problems (Last Reviewed 04/25/20 @ 09:06 by Marii Peña) Encounter for induction of labor (Acute) Polyhydramnios affecting (Acute) IoL at 39 weeks 36 weeks gestation of (Acute) electronic covid test ordered 04/11/20 RAPID for IOL Abnormal glucose affecting (Acute) normal 3 hr GTT Vaccine for wlrtybocag-xcqutse-gavhrjkkz, combined (Acute) 02/13/20 History of recurrent miscarriages (Acute) neg apl testing. both early. (Acute) genetic, carrier, and ntd screening declined. neg. apl FU; normal anatomy Supervision of normal first (Acute) PRR ANGELIA 05/06/20 boy [place] Guzman (Acute) encouraged counseling, no meds at present Subjective: Patient doing well without complaints. Tolerating PO. Ambulating and voiding without difficulty. breast feeding well. Denies chest pain, shortness of breath, calf pain/swelling, fevers, chills, lightheadedness. Objective: Laboratory Tests 05/02/20 04/30/20 04/30/20 Range/Units 03:25 19:32 19:32 WBC 23.9 H 12.5 H (4.4-11.0) K/mm3 RBC 2.85 L 4.14 L (4.2-5.4) M/mm3 Hgb 8.5 L 12.5 (12.0-15.0) g/dL Hct 24.7 L 35.3 L (37-47) % MCV 86.7 85.3 (81-99) fL MCH 29.8 30.2 (27.0-32.0) pg MCHC 34.4 35.4 (32-36) g/dL RDW Std Deviation 40.6 39.8 (35.1-43.9) fl RDW Coeff of Alf 12.9 13.0 (11.6-14.6) % Plt Count 113 L 155 (150-450) K/mm3 MPV 11.0 11.4 (6.2-12.0) fl Immature Gran % (Auto) 0.800 (0.0-0.9) % Neut % (Auto) 79.4 H (47-70) % Lymph % (Auto) 13.0 L (19-41) % Zapata % (Auto) 6.4 (0-10) % Eos % (Auto) 0.2 (0-5) % Baso % (Auto) 0.2 (0-1) % Absolute Neuts (auto) 9.9 H (2.0-7.7) X10^3/uL Absolute Lymphs (auto) 1.62 (0.83-4.51) X10^3/uL Nucleated RBC % 0 (0-5) % Blood Type O POSITIVE Antibody Screen NEGATIVE - Physical Exam Vitals/I&O's: Vital Signs Temp Pulse Resp BP Pulse Ox 98.1 F 84 18 93/58 L 99 05/02/20 05:44 05/02/20 07:13 05/02/20 07:13 05/02/20 05:44 05/02/20 07:13 Oxygen Delivery Method Room Air Weight: 148 lb 3.2 oz Body Mass Index (BMI) 28.0 Intake and Output for Last 24 Hours 04/30/20 05/01/20 05/02/20 23:59 23:59 23:59 Intake Total 2.4 / 2.4 5891.70 / 5891.70 2725 / 2725 Output Total 900 / 900 725 / 725 Balance 2.4 / 2.4 4991.70 / 4991.70 1999 General: Alert, Oriented x3, Cooperative, No apparent distress, Well developed, Well nourished HEENT: Atraumatic, PERRLA, EOMI, Normocephalic Neck: Supple, No JVD Lungs: Normal air movement Cardiovascular: Regular rate Abdomen: Soft, Non Tender, Non-Distended, - - incision c/d/i, fundus firm Extremities: No edema, No Calf Tenderness Neurological: Cranial nerves II-XII grossly intact, Neuro grossly intact Psych/Mental Status: Normal Affect, Appropriate Microbiology Past 72 Hours 04/30/20 20:00 Mucosa - Nose SARS-CoV-2 Antigen (Rapid) - Final Laboratory Results 05/02/20 03:25: WBC 23.9 H, RBC 2.85 L, Hgb 8.5 L, Hct 24.7 L, MCV 86.7, MCH 29.8, MCHC 34.4, RDW Std Deviation 40.6, RDW Coeff of Alf 12.9, Plt Count 113 L, MPV 11.0 Current Medications Acetaminophen (Acetaminophen 500 Mg Tablet) 1,000 mg PO Q6 [facility] Last Admin: 05/02/20 06:05 Dose: 1,000 mg Documented by: Bisacodyl (Bisacodyl 10 Mg Suppository) 10 mg RECTAL UD PRN PRN Reason: If no BM Diphenhydramine HCl (Diphenhydramine 25 Mg Capsule) 25 mg PO Q6H PRN PRN PRN Reason: ITCHING Stop: 05/02/20 23:13 Hydrocortisone (Hydrocortisone 2.5% Crm) 1 applic TOPICAL TID PRN PRN; Protocol PRN Reason: Discomfort Lactated Ringer's () 1,000 mls @ 100 mls/hr IV .Q10H [facility] Last Infusion: 05/02/20 05:16 Dose: 100 mls/hr Documented by: Ibuprofen (Ibuprofen 600 Mg Tablet) 600 mg PO Q6H [facility] Ketorolac Tromethamine (Ketorolac 30 Mg/Ml Syringe) 30 mg IV Q6H [facility] Stop: 05/02/20 23:01 Last Admin: 05/02/20 04:41 Dose: 30 mg Documented by: Methylergonovine Maleate (Methylergonovine 0.2 Mg/Ml Ampul) 0.2 mg IM X1 PRN PRN Reason: Uterine Atony Nalbuphine HCl (Nalbuphine 10 Mg/Ml Ampul) 5 mg IV Q3H PRN PRN PRN Reason: ITCHING Stop: 05/02/20 23:13 Naloxone HCl (Naloxone 0.4 Mg/Ml Syringe) 0.02 mg IV Q1M PRN PRN Reason: RR <10 and pt unresponsive Ondansetron HCl (Ondansetron 4 Mg/2 Ml Vial) 4 mg IV Q4H PRN PRN PRN Reason: Nausea Oxycodone HCl (Oxycodone 5 Mg Tablet) 5 - 10 mg PO Q4H PRN PRN PRN Reason: Pain Score 4-10 Prochlorperazine Edisylate (Prochlorperazine 10 Mg/2 Ml Vial) 10 mg IV Q6H PRN PRN PRN Reason: NAUSEA Senna/Docusate Sodium (Senna/Docusate Sodium 1 Tablet) 1 - 2 tablet PO DAILY [facility] Simethicone (Simethicone 80 Mg Tablet) 80 mg PO [facility] PRN PRN Reason: Indigestion/stomach pain Sodium Chloride (0.9% Saline Lock 10 Ml Syringe) 5 - 15 ml IV UD PRN PRN Reason: SALINE FLUSH Medical Necessity - Tobacco Use Smoking Status: Never smoker Assessment/Plan All Active Problems (Last Reviewed 04/25/20 @ 09:06 by Marii Peña) Encounter for induction of labor (Acute) Polyhydramnios affecting (Acute) 36 weeks gestation of (Acute) Abnormal glucose affecting (Acute) Vaccine for uhablcuxun-qtarnbr-ydskhhyqv, combined (Acute) History of recurrent miscarriages (Acute) (Acute) Supervision of normal first (Acute) Anxiety (Acute) Incomplete (Resolved) Subchorionic hemorrhage in first trimester (Resolved) Threatened (Resolved) Uterine size-date discrepancy, third trimester (Resolved) s/p LTCS PPD # 1 1. routine post care 2. breast feeding- support given 3. rh positive 4. rubella immune
[2020-05-02] MEDS: Ferrous Sulfate 325 MG Tablet PO ×2 (12:27→18:34)
[2020-05-02] MEDS: Senna/Docusate Sodium 1 Tablet PO (12:27)
[2020-05-02] MEDS: 0.9% Saline Lock 10 ML Syringe IV ×2 (12:28→18:35)
--- NOTE | 2020-05-02 16:17 | CASEMGMT ---
Social Work Assessment Date of Referral: 05/02/2020 Time of Referral: 07:17 Date of Intervention: 05/12/2020 Time of Intervention: 16:00 Reason for Referral: PMH-Anxiety History Obtained from: Chart, Pt Household: Pt states that she and Hudson (FOB) live together Financial Status: Pt states that both she and her Hudson work. Pt denied any financial concerns. Per pt's chart, pt works at [email or web address] and pt's Hudson work at [employer]. Infant Supplies: Pt states she has all infant supplies that is needed, states she has a Car Seat for the transportation home. Transportation: Pt denied any transportation concerns at this time. Family/Support System: Pt states that she has family support. Pt states that she has family that is able to assist if needed. Mental Health Hx: Pt confirms she has history of Anxiety. Pt states she has not been in counseling and doesn't take any current medications for anxiety. Pt states when she gets anxious, her coping skill is to breathe. Pt denied any depression history. Pt denied any history/current suicidal thoughts/plans/ideations. DEN spoke with pt regarding Post Depression and Post Anxiety. SW educated pt that Post Anxiety can happen up to a year after the baby is born. SW provided pt with resources including counseling resources. Pt states that at this time, she feels that her anxiety is well managed. Pt denied any anxiety concerns at this time. Substance Abuse Hx: Pt denied MOB's Other Children: Pt states this baby is first baby. Per Chart review, pt has had some miscarriages in the past. DEN spoke with pt regarding [facility] program for first time mom. Pt denied wanting referral made at this time. Plan: Pt is hoping to discharge tomorrow or Tuesday. Pt states she has all supplies needed for baby. Pt was provided counseling resources and education on Post Depression. Pt was also provided [facility] brochure. Pt denied wanting any referrals at this time. Pt denied any additional needs or concerns at this time. Adelaide Das FINANCIAL SYSTEMS ADMINISTRATOR, GLYCERIN OPERATOR
[2020-05-03] MEDS: Ibuprofen 600 MG Tablet PO ×5 (00:11→23:08)
[2020-05-03] MEDS: Acetaminophen 500 MG Tablet 1000 MG PO ×4 (00:13→18:52)
[2020-05-03 01:40] VITALS: BP 84/49; PULSE 82; RESP 14; TEMP 36.4; O2SAT 97
--- NOTE | 2020-05-03 03:16 | PCM.PN.OB ---
Patient Problems: Active and Suspected Problems (Last Reviewed 04/25/20 @ 09:06 by Marii Peña) Encounter for induction of labor (Acute) Polyhydramnios affecting (Acute) IoL at 39 weeks 36 weeks gestation of (Acute) electronic covid test ordered 04/11/20 RAPID for IOL Abnormal glucose affecting (Acute) normal 3 hr GTT Vaccine for ebnjjcnbbu-yjjcxdp-tbeexvxvo, combined (Acute) 02/13/20 History of recurrent miscarriages (Acute) neg apl testing. both early. (Acute) genetic, carrier, and ntd screening declined. neg. apl FU; normal anatomy Supervision of normal first (Acute) PRR ANGELIA 05/06/20 boy [place] Hudson Guzman (Acute) encouraged counseling, no meds at present Subjective: Patient doing well without complaints. Tolerating PO. Ambulating and voiding without difficulty. feeding well. Denies chest pain, shortness of breath, calf pain/swelling, fevers, chills, lightheadedness. - Physical Exam Vitals/I&O's: Vital Signs Temp Pulse Resp BP Pulse Ox 97.6 F L 82 14 84/49 L 97 05/03/20 01:40 05/03/20 01:40 05/03/20 01:40 05/03/20 01:40 05/03/20 01:40 Oxygen Delivery Method Room Air Weight: 148 lb 3.2 oz Body Mass Index (BMI) 28.0 Intake and Output for Last 24 Hours 05/01/20 05/02/20 05/03/20 23:59 23:59 23:59 Intake Total 5891.70 / 5891.70 2725 / 2725 Output Total 900 / 900 1525 / 1525 Balance 4991.70 / 4991.70 1200 / 1200 General: Alert, Oriented x3 Microbiology Past 72 Hours 04/30/20 20:00 Mucosa - Nose SARS-CoV-2 Antigen (Rapid) - Final Laboratory Results 05/02/20 03:25: WBC 23.9 H, RBC 2.85 L, Hgb 8.5 L, Hct 24.7 L, MCV 86.7, MCH 29.8, MCHC 34.4, RDW Std Deviation 40.6, RDW Coeff of Alf 12.9, Plt Count 113 L, MPV 11.0 Current Medications Acetaminophen (Acetaminophen 500 Mg Tablet) 1,000 mg PO Q6 [facility] Last Admin: 05/03/20 00:13 Dose: 1,000 mg Documented by: Bisacodyl (Bisacodyl 10 Mg Suppository) 10 mg RECTAL UD PRN PRN Reason: If no BM Ferrous Sulfate (Ferrous Sulfate 325 Mg Tablet) 325 mg PO BIDCM [facility] Last Admin: 05/02/20 18:34 Dose: 325 mg Documented by: Hydrocortisone (Hydrocortisone 2.5% Crm) 1 applic TOPICAL TID PRN PRN; Protocol PRN Reason: Discomfort Ibuprofen (Ibuprofen 600 Mg Tablet) 600 mg PO Q6H [facility] Last Admin: 05/03/20 00:11 Dose: 600 mg Documented by: Methylergonovine Maleate (Methylergonovine 0.2 Mg/Ml Ampul) 0.2 mg IM X1 PRN PRN Reason: Uterine Atony Naloxone HCl (Naloxone 0.4 Mg/Ml Syringe) 0.02 mg IV Q1M PRN PRN Reason: RR <10 and pt unresponsive Ondansetron HCl (Ondansetron 4 Mg/2 Ml Vial) 4 mg IV Q4H PRN PRN PRN Reason: Nausea Oxycodone HCl (Oxycodone 5 Mg Tablet) 5 - 10 mg PO Q4H PRN PRN PRN Reason: Pain Score 4-10 Prochlorperazine Edisylate (Prochlorperazine 10 Mg/2 Ml Vial) 10 mg IV Q6H PRN PRN PRN Reason: NAUSEA Senna/Docusate Sodium (Senna/Docusate Sodium 1 Tablet) 1 - 2 tablet PO DAILY [facility] Last Admin: 05/02/20 12:27 Dose: 1 tablet Documented by: Simethicone (Simethicone 80 Mg Tablet) 80 mg PO [facility] PRN PRN Reason: Indigestion/stomach pain Sodium Chloride (0.9% Saline Lock 10 Ml Syringe) 5 - 15 ml IV UD PRN PRN Reason: SALINE FLUSH Last Admin: 05/02/20 18:35 Dose: 10 ml Documented by: Medical Necessity - Tobacco Use Smoking Status: Never smoker Assessment/Plan All Active Problems (Last Reviewed 04/25/20 @ 09:06 by Marii Peña) Encounter for induction of labor (Acute) Polyhydramnios affecting (Acute) 36 weeks gestation of (Acute) Abnormal glucose affecting (Acute) Vaccine for xhrqtpfgpc-wpeholn-pxjfnpsrp, combined (Acute) History of recurrent miscarriages (Acute) (Acute) Supervision of normal first (Acute) Anxiety (Acute) Incomplete (Resolved) Subchorionic hemorrhage in first trimester (Resolved) Threatened (Resolved) Uterine size-date discrepancy, third trimester (Resolved) s/p LTCS PPD # 2 1. routine post care 2. breast feeding- support given 3. rh positive 4. rubella immune
[2020-05-03 08:00] VITALS: BP 90/51; PULSE 89; RESP 15; TEMP 36.3
[2020-05-03 11:45] VITALS: BP 102/65; PULSE 94; RESP 16; TEMP 36.3
[2020-05-03] MEDS: Ferrous Sulfate 325 MG Tablet PO ×2 (12:23→18:52)
[2020-05-03] MEDS: Senna/Docusate Sodium 1 Tablet PO (12:23)
[2020-05-03 16:00] VITALS: BP 105/55; PULSE 94; RESP 16; TEMP 37
[2020-05-03 19:40] VITALS: BP 99/67; PULSE 96; RESP 16; TEMP 36.8
[2020-05-04] MEDS: Acetaminophen 500 MG Tablet 1000 MG PO ×2 (00:19→06:38)
[2020-05-04 02:04] VITALS: BP 101/62; PULSE 82; RESP 16; TEMP 36.7
[2020-05-04] MEDS: Ibuprofen 600 MG Tablet PO ×2 (04:45→10:39)
[2020-05-04 08:00] VITALS: BP 100/60; PULSE 87; RESP 18; TEMP 36.7; O2SAT 99
[2020-05-04] MEDS: Ferrous Sulfate 325 MG Tablet PO (08:16)
[2020-05-04] MEDS: Senna/Docusate Sodium 1 Tablet PO (10:39)
--- NOTE | 2020-05-04 11:29 | PN.OBGYN_ITS ---
Patient Problems: Active and Suspected Problems (Last Reviewed 04/25/20 @ 09:06 by Marii Peña) Encounter for induction of labor (Acute) Polyhydramnios affecting (Acute) IoL at 39 weeks 36 weeks gestation of (Acute) electronic covid test ordered 04/11/20 RAPID for IOL Abnormal glucose affecting (Acute) normal 3 hr GTT Vaccine for nhckvgoilb-hezkkxd-nwylahvcq, combined (Acute) 02/13/20 History of recurrent miscarriages (Acute) neg apl testing. both early. (Acute) genetic, carrier, and ntd screening declined. neg. apl FU; normal anatomy Supervision of normal first (Acute) PRR ANGELIA 05/06/20 boy [place] Guzman (Acute) encouraged counseling, no meds at present Subjective: Patient doing well without complaints. Tolerating PO. Ambulating and voiding without difficulty. feeding well. Denies chest pain, shortness of breath, calf pain/swelling, fevers, chills, lightheadedness. - Physical Exam Vitals/I&O's: Vital Signs Temp Pulse Resp BP Pulse Ox 98.0 F 87 18 100/60 99 05/04/20 08:00 05/04/20 08:00 05/04/20 08:00 05/04/20 08:00 05/04/20 08:00 Oxygen Delivery Method Room Air Weight: 148 lb 3.2 oz Body Mass Index (BMI) 28.0 Intake and Output for Last 24 Hours 05/02/20 05/03/20 05/04/20 23:59 23:59 23:59 Intake Total 2725 / 2725 Output Total 1525 / 1525 Balance 1200 / 1200 General: Alert, Oriented x3 Current Medications Acetaminophen (Acetaminophen 500 Mg Tablet) 1,000 mg PO Q6 [facility] Last Admin: 05/04/20 06:38 Dose: 1,000 mg Documented by: Bisacodyl (Bisacodyl 10 Mg Suppository) 10 mg RECTAL UD PRN PRN Reason: If no BM Ferrous Sulfate (Ferrous Sulfate 325 Mg Tablet) 325 mg PO BIDCM [facility] Last Admin: 05/04/20 08:16 Dose: 325 mg Documented by: Hydrocortisone (Hydrocortisone 2.5% Crm) 1 applic TOPICAL TID PRN PRN; Protocol PRN Reason: Discomfort Ibuprofen (Ibuprofen 600 Mg Tablet) 600 mg PO Q6H [facility] Last Admin: 05/04/20 10:39 Dose: 600 mg Documented by: Methylergonovine Maleate (Methylergonovine 0.2 Mg/Ml Ampul) 0.2 mg IM X1 PRN PRN Reason: Uterine Atony Naloxone HCl (Naloxone 0.4 Mg/Ml Syringe) 0.02 mg IV Q1M PRN PRN Reason: RR <10 and pt unresponsive Ondansetron HCl (Ondansetron 4 Mg/2 Ml Vial) 4 mg IV Q4H PRN PRN PRN Reason: Nausea Oxycodone HCl (Oxycodone 5 Mg Tablet) 5 - 10 mg PO Q4H PRN PRN PRN Reason: Pain Score 4-10 Prochlorperazine Edisylate (Prochlorperazine 10 Mg/2 Ml Vial) 10 mg IV Q6H PRN PRN PRN Reason: NAUSEA Senna/Docusate Sodium (Senna/Docusate Sodium 1 Tablet) 1 - 2 tablet PO DAILY [facility] Last Admin: 05/04/20 10:39 Dose: 2 tablet Documented by: Simethicone (Simethicone 80 Mg Tablet) 80 mg PO [facility] PRN PRN Reason: Indigestion/stomach pain Sodium Chloride (0.9% Saline Lock 10 Ml Syringe) 5 - 15 ml IV UD PRN PRN Reason: SALINE FLUSH Last Admin: 05/02/20 18:35 Dose: 10 ml Documented by: Medical Necessity - Tobacco Use Smoking Status: Never smoker Assessment/Plan All Active Problems (Last Reviewed 04/25/20 @ 09:06 by Marii Peña) Encounter for induction of labor (Acute) Polyhydramnios affecting (Acute) 36 weeks gestation of (Acute) Abnormal glucose affecting (Acute) Vaccine for ujlekfvdzw-ugccywu-puwsvxppy, combined (Acute) History of recurrent miscarriages (Acute) (Acute) Supervision of normal first (Acute) Anxiety (Acute) Incomplete (Resolved) Subchorionic hemorrhage in first trimester (Resolved) Threatened (Resolved) Uterine size-date discrepancy, third trimester (Resolved) s/p LTCS PPD # 3 1. routine post care 2. breast feeding- support given 3. rh positive 4. rubella immune
--- NOTE | 2020-05-09 06:54 | PCM.DC.BLA ---
Discharge Summary Date of Admission: 04/30/20 Date of Discharge: 05/04/20 Summary: Patient was admitted for induction of labor secondary to polyhydramnios. Patient experienced an arrest of labor and dilation despite adequate length of time with rupture of membranes and Pitocin and therefore proceeded with a primary low transverse . Postoperatively patient had return of bowel and bladder function and was ambulating well, tolerating adequate p.o., and was stable for discharge to home on postop day #3. Discharge medications naproxen and Percocet. Follow-up in office in 2 weeks for incision check in 6 weeks for visit. Routine post section diet and activity instructions. Patient Problems: Active and Suspected Problems (Last Reviewed 04/25/20 @ 09:06 by Marii Peña) Encounter for induction of labor (Acute) Polyhydramnios affecting (Acute) IoL at 39 weeks 36 weeks gestation of (Acute) electronic covid test ordered 04/11/20 RAPID for IOL Abnormal glucose affecting (Acute) normal 3 hr GTT Vaccine for jlwqtqjfbw-dqivzsc-nwbsrldxe, combined (Acute) 02/13/20 History of recurrent miscarriages (Acute) neg apl testing. both early. (Acute) genetic, carrier, and ntd screening declined. neg. apl FU; normal anatomy Supervision of normal first (Acute) PRR ANGELIA 05/06/20 boy [facility] [place] Anxiety (Acute) encouraged counseling, no meds at present - Physical Exam Vitals/I&O's: Vital Signs Temp Pulse Resp BP Pulse Ox 98.0 F 87 18 100/60 99 05/04/20 08:00 05/04/20 08:00 05/04/20 08:00 05/04/20 08:00 05/04/20 08:00 Oxygen Delivery Method Room Air Weight: 148 lb 3.2 oz Body Mass Index (BMI) 28.0
== END 2020-05-04 12:00 | disposition home or self-care (01) | DRG 788 ==
PROVIDERS: Admitting Provider Obstetrics & Gynecology; PCP Family Medicine; Referring Provider Obstetrics & Gynecology; Visit Provider Obstetrics & Gynecology
DX: O62.0 Primary inadequate contractions (principal); O40.3XX0 Polyhydramnios, third trimester, not applicable or unspecified; O26.23 Pregnancy care for patient with recurrent pregnancy loss, third trimester; O99.344 Other mental disorders complicating childbirth; F41.9 Anxiety disorder, unspecified; O99.814 Abnormal glucose complicating childbirth; O33.9 Maternal care for disproportion, unspecified; Z3A.39 39 weeks gestation of pregnancy; Z37.0 Single live birth; Z28.21 Immunization not carried out because of patient refusal
CPT/HCPCS: 59025; 59050; 85025; 85027; 86850; 86900; 86901; 87426; 99218; 99251; J7120; A4216; G0378; G0463; J2405; J3490

== ENCOUNTER → 2022-05-18 | Outpatient (CLI) | payer OTHER, SELFPAY ==
[2022-05-18 09:42] LABS: Absolute Lymphocyte Count 1.28 X10^3/uL (0.83-4.51); Absolute Neutrophil Count 5.3 X10^3/uL (2.0-7.7); Basophil# 0.02 X10^3/uL; Basophil% 0.3 % (0-1); Eosinophil# 0.14 X10^3/uL; Eosinophils% 1.9 % (0-5); Hematocrit 38.6 % (37-47); Hemoglobin 13.7 g/dL (12.0-15.0); Lymphocyte # 1.28 X10^3/ul (0.83-4.51); Lymphocyte % 17.8 % (19-41); Mean Corp Hgb Conc 35.5 g/dL (32-36); Mean Corpuscular Hgb 28.7 pg (27.0-32.0); Mean Corpuscular Volume 80.9 fL (81-99); Mean Platelet Vol. 9.8 fl (6.2-12.0); Monocyte# 0.43 X10^3/uL; NRBC Flagged by Analyzer 0 % (0-5); Neutrophil # 5.32 X10^3/uL (2.7-7.7); Neutrophil % 73.7 % (47-70); Platelet Count 202 K/mm3 (150-450); RBC Distribution Width CV 11.8 % (11.6-14.6); RBC Distribution Width SD 34.5 fl (35.1-43.9); Red Blood Count 4.77 M/mm3 (4.2-5.4); White Blood Count 7.2 K/mm3 (4.4-11.0)
[2022-05-18 11:04] LABS: HIV - WCH Non-Reactive (Nonreactive); Hepatitis B Surface Antigen Non-Reactive (Nonreactive); Hepatitis C Antibody Non-Reactive (Nonreactive); Syphilis Antibodies Non-reactive
[2022-05-21 03:07] LABS: Chlamydia By Nucleic Acid AMP Negative (Negative)
[2022-05-21 19:59] LABS: Gonococcus By Nucleic Acid AMP Negative (Negative)
== END | disposition home or self-care (01) ==
PROVIDERS: PCP Family Medicine; Referring Provider Obstetrics & Gynecology; Visit Provider Obstetrics & Gynecology
DX: O09.529 Supervision of elderly multigravida, unspecified trimester (principal)
CPT/HCPCS: 36415; 85025; 86703; 86780; 86803; 86850; 86900; 86901; 87086; 87340; 87491; 87591

== ENCOUNTER 2022-08-28 09:43 | Emergency (ER) | payer OTHER, SELFPAY ==
[2022-08-28 09:46] VITALS: BP 113/66; PULSE 107; RESP 18; TEMP 35.7; O2SAT 100
--- NOTE | 2022-08-28 09:55 | US_ITS ---
INDICATION: Right flank pain, 26 weeks gestation, suspect obstruction EXAMINATION: Ultrasound US Kidney(s) complete (eg, kidneys and bladder) TECHNIQUE: Terry scale and color doppler images were obtained of the kidneys. COMPARISON: None. FINDINGS: RIGHT KIDNEY: The right kidney measures 11.2 cm in length. There is hydronephrosis. There is a nonobstructing 5 mm calculus. There are additional smaller nonobstructing right renal calculi. LEFT KIDNEY: The left kidney measures 11.1 cm in length.. There is no hydronephrosis. There are nonobstructing left renal calculi measuring up to 6 mm. URINARY BLADDER: No acute abnormality. US/Kidney and Bladder IMPRESSION: Right sided hydronephrosis. Bilateral nonobstructing renal calculi measuring up to 6 mm on the left. Electronically Signed: Brooke Garcia MD at 12:48 EDT ,
[2022-08-28] MEDS: Ondansetron 4 MG/2 ML Vial IV ×2 (10:17→13:33)
[2022-08-28] MEDS: Morphine 4 MG/ML Syringe IV ×3 (10:17→13:33)
[2022-08-28] MEDS: 0.9% Normal Saline 1,000 ML 150 ML IV (10:17)
[2022-08-28] MEDS: Ketorolac 15 MG/ML Vial IV (10:18)
[2022-08-28 10:21] LABS: Absolute Lymphocyte Count 1.69 X10^3/uL (0.83-4.51); Absolute Neutrophil Count 13.7 X10^3/uL (2.0-7.7); Basophil# 0.03 X10^3/uL; Basophil% 0.2 % (0-1); Eosinophil# 0.07 X10^3/uL; Eosinophils% 0.4 % (0-5); Hemoglobin 12.6 g/dL (12.0-15.0); Lymphocyte # 1.69 X10^3/ul (0.83-4.51); Lymphocyte % 10.3 % (19-41); Mean Corp Hgb Conc 34.1 g/dL (32-36); Mean Corpuscular Hgb 29.3 pg (27.0-32.0); Mean Platelet Vol. 10.6 fl (6.2-12.0); Monocyte# 0.73 X10^3/uL; Monocyte% 4.5 % (0-10); NRBC Flagged by Analyzer 0 % (0-5); Neutrophil # 13.73 X10^3/uL (2.7-7.7); Platelet Count 182 K/mm3 (150-450); RBC Distribution Width CV 13.3 % (11.6-14.6); RBC Distribution Width SD 41.3 fl (35.1-43.9); White Blood Count 16.3 K/mm3 (4.4-11.0)
[2022-08-28 10:31] LABS: Anion Gap 9 (5-15); BUN 11 mg/dL (7-18); BUN/Creat Ratio 20.8 RATIO (10-20); Chloride 107 mmol/L (98-107); Creatinine, Serum 0.53 mg/dL (0.55-1.02); EST Glomerular Filtration Rate 139 mL/min (>60); Est Glom Filt Rate - Afr Amer 169 mL/min (>60); Glucose 93 mg/dL (74-106); Potassium 3.5 mmol/L (3.5-5.1); Sodium Level 139 mmol/L (136-145)
[2022-08-28 11:52] VITALS: BMI 26.1
--- NOTE | 2022-08-28 12:01 | EX.ED.DYSGE1 ---
HPI History of Present Illness Chief Complaint: Flank Pain Detail of Chief Complaint: Abrupt onset of right flank pain radiating anteriorly. Informant: patient Onset/Context/Timing Onset: Hours Context: Sudden Onset Timing: Continuous and Waxes and wanes Quality: Colicky severe Location: Right flank Current Severity: Severe Maximum Severity: Severe Worsened by: Cannot find a position of comfort Relieved by: None thing Associated Symptoms Associated Symptoms: Nausea and vomiting Narrative Narrative: Patient is a G4, P1 AB 2 (spontaneous) female who is 24 weeks gestation and presents with abrupt onset of right flank pain radiating anteriorly. Associate with nausea vomiting. It does feel like prior kidney stone. She reports urgency. She had hematuria earlier. She denies trauma to her back or abdomen. She denies cardiac or respiratory symptoms. She does not have a local urologist. 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 Dalton Mason. Her miscarriages were first trimester. Prior similar symptoms: Yes Recent Illness/Hospitalization: No PFSH PFS Medical History (Updated 08/28/22 @ 14:[address] Hari Carr MD) Anxiety History of miscarriage No significant past medical history Home Medications vitamin#30 30 mg iron-10 mg iron-folic acid 1 mg-omg3 capsule 1 cap PO DAILY supplement 04/05/19 [History Last Taken 04/30/20] promethazine 25 mg rectal suppository 25 mg FL ONCE #12 ea 05/10/22 [Rx Last Taken Unknown] Allergy/AdvReac Type Severity Reaction Status Date / Time No Known Allergies Allergy Verified 08/10/22 08:03 Family History Grandmother Breast cancer Grandmother Breast cancer Surgical History delivery delivered S/P dilation and curettage Social History adopted: No household members: spouse and children housing: house number of children: 1 current occupational status: unemployed 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 current occupational exposures/hazards: No pets and animals: Yes pets and animals: cat(s) and other details: pts mother changes litter box history of recent travel: No Smoking Status: Never smoker Electronic Cigarette Use: not used second hand exposure: No alcohol intake: current details: pre substance use type: does not use well-balanced diet: daily or most days caffeine: Yes what type of physical activity do you participate in: walking frequency: 5-6 times per week seatbelt use: always do you feel safe at home: Yes additional social history: 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 [employer] ROS ROS ED Constitutional Constitutional ED: Denies chills, fever(s), subjective, sweats or weight loss Eyes Eyes: Denies blurry vision or change in vision ENT ENT ED: Denies ear pain, rhinorrhea or sore throat Cardiovascular Cardiovascular: Denies chest pain or palpitations Respiratory/Chest Respiratory/Chest: Denies cough or dyspnea Gastrointestinal Gastrointestinal: Reports abdominal pain, nausea and vomiting; Denies constipation, diarrhea or melena Genitourinary Genitourinary ED: Reports dysuria, LMP (females 10-50) Details: Comment: (Second trimester ) and urinary frequency; Denies hematuria Musculoskeletal Musculoskeletal: Denies arthralgias or myalgias Integumentary Denies rash Neurologic Neurologic: Denies headache(s), paresthesias or weakness Psychiatric Psychiatric: Reports anxiety Endocrine Endocrinology: Denies cold intolerance or heat intolerance Hematologic/Lymphatic Hematologic/Lymphatic: Reports systems reviewed and no addt'l complaints, except as documented EXAM Physical Exam Const Vital Signs: 08/28/22 09:46 08/28/22 13:29 Temperature 96.2 F L Temperature Source Temporal Pulse Rate 107 H 98 Respiratory Rate 18 16 Blood Pressure 113/66 100/73 Blood Pressure Mean 81 82 Pulse Ox 100 100 Oxygen Delivery Method Room Air Room Air Positive well nourished and well developed Constitutional Narrative: Patient appears pale and in discomfort. General Appearance ED: well developed HEENT Reports moist mucous membranes HEENT Narrative: Head is atraumatic normocephalic. Ears are normal. Nares are patent. Posterior pharynx is normal. Eyes PERRL and EOMs intact bilaterally General Eye ED: Negative for pale conjunctiva or scleral icterus Neck no lymphadenopathy, supple and no JVD Resp normal respiratory effort and clear to auscultation bilaterally Cardio regular rate, regular rhythm, S1 normal heart sound, S2 normal heart sound and no murmurs GI normal to inspection, nondistended, normoactive bowel sounds, non-tender, non-distended and no masses; Negative for hepatosplenomegaly GI Narrative: Fundal height is approximately 4 fingerbreadths above the umbilicus. Palpation: soft Back/Spine General Back: CVA tenderness right Extremity normal to inspection General Extremety ED: Negative for edema or tenderness General Extremity: Negative for edema Neuro oriented x3, CN's II-XII intact bilaterally and no sensory deficits noted Sensorium / Orientation: alert Psych mental status grossly normal Skin no rashes or lesions noted, no wounds and skin turgor normal MDM MDM MDM Narrative Medical decision making narrative: Patient presents with symptoms consistent with obstructing ureteral stone. Will obtain UA to assess for infection. CBC was obtained assess white count differential and BMP to assess renal function. Since patient is we will obtain ultrasound of the kidney and bladder to determine there is evidence of hydronephrosis and if the oil burner technician was able to visualize a stone. Do not want to expose the fetus to radiation if at all possible. Patient received Zofran for nausea vomiting. She also received morphine and Toradol for her pain. She received 1 dose of Toradol which is safe in the second trimester. Patient was reassessed at 1308. She reports pain is better but still feels uncomfortable. Third dose of morphine was ordered. UA is pending. Case was discussed with Dr. Holly Ocampo her assembler dry cell and battery. [facility] reasons. This was conveyed to the patient and her . They state they live in [place] and would prefer transfer to [facility]. Will contact urologist at [facility] and determine if he or she is willing to accept the patient for obstructing ureteral stone for pain management. The transfer nurse at [facility] informed us that if she was seen in the emergency room they would not keep her at the facility they would transfer her. Patient and were made aware of this. They will go with Dr. Holly Ocampo's recommendation of [facility]. Lab Data Attestation: I reviewed the patient's lab results. Lab results narrative: CommendedWhite count is elevated which may be due to stress, pain and the fact that she is . Pounds. Urine reveals Labs: Laboratory Results - last 24 hr 08/28/22 08/28/22 08/28/22 10:09 10:09 12:50 WBC 16.3 H RBC 4.30 Hgb 12.6 Hct 37.0 MCV 86.0 MCH 29.3 MCHC 34.1 RDW Std Deviation 41.3 RDW Coeff of Alf 13.3 Plt Count 182 MPV 10.6 Immature Gran % (Auto) 0.600 Neut % (Auto) 84.0 H Lymph % (Auto) 10.3 L Sabine % (Auto) 4.5 Eos % (Auto) 0.4 Baso % (Auto) 0.2 Absolute Neuts (auto) 13.7 H Absolute Lymphs (auto) 1.69 Nucleated RBC % 0 Sodium 139 Potassium 3.5 Chloride 107 Carbon Dioxide 23.0 Anion Gap 9 BUN 11 Creatinine 0.53 L Est GFR (MDRD) Af Amer 169 Est GFR (MDRD) Non-Af 139 BUN/Creatinine Ratio 20.8 H Glucose 93 Calcium 9.0 Urine Color Yellow Urine Clarity Sl. Cloudy Urine pH 6.5 Ur Specific [place] 1.020 Urine Protein 30 H Urine Glucose (UA) Normal Urine Ketones 150 A* Urine Occult Blood 250 H Urine Nitrite Negative Urine Bilirubin Negative Urine Urobilinogen Normal Ur Leukocyte Esterase 25 H Urine RBC > 100 SEEN Urine WBC 0-5 SEEN Ur Squamous Epith Cells 0 SEEN Urine Bacteria 0 SEEN Urine Mucus 0 SEEN Radiography Diagnostic Testing: Clinical Impression(s) from Imaging Studies Renal Ultrasound 08/28/22 09:55 IMPRESSION: Right sided hydronephrosis. Bilateral nonobstructing renal calculi measuring up to 6 mm on the left. Electronically Signed: Brooke Garcia MD at 12:48 EDT , Treatment and Re-Evaluation :: Patient was reassessed during the ultrasound. She states the pain was returning. She received additional 4 mg of morphine IV push. Discharge Plan Triage Chief Complaint: Flank Pain ED Provider: Hari Carr Dx/Rx/DC Orders Clinical Impression: Hydronephrosis with urinary obstruction due to ureteral calculus, Bilateral renal stones, Ketosis, Intractable pain Prescriptions: No Action vitamin#30 30 mg iron-10 mg iron-folic acid 1 mg-omg3 capsule 30 mg iron-10 mg iron-1 mg capsule 1 cap PO DAILY promethazine 25 mg suppository 25 mg FL ONCE Qty: 12 2RF Primary Care Provider: Cee Gar Referrals: Cee Gar MD [Primary Care Provider] - Disposition Disposition: Acute Care Hospital Discharge Location: [facility]
[2022-08-28 12:56] LABS: Bacteria 0 SEEN /hpf (None Seen); Mucous, Urine 0 SEEN /hpf (<or=2+); Squamous Epithelial Cells - UA 0 SEEN /hpf (5-10)
[2022-08-28 13:01] LABS: Color, Urine Yellow (Yellow); Glucose, Dipstick Normal (Normal); Leukocyte Esterase-Dipstick 25 /ul (Negative); Nitrite-Dipstick Negative (Negative); Occult Blood-Urine 250 /ul (Negative); Protein-Dipstick 30 mg/dl (Negative); Urine Bilirubin Dipstick Negative (Negative); Urine Clarity Sl. Cloudy (Clear); Urine Urobilinogen Normal (Normal); Urine pH 6.5 (5.0 - 8.0)
[2022-08-28 13:18] LABS: Ketone-Dipstick 150 mg/dl (Negative)
[2022-08-28 13:19] LABS: Red Blood Cells-Urine > 100 SEEN /hpf (0-5); White Blood Cells 0-5 SEEN /hpf (0-5)
[2022-08-28 13:29] VITALS: BP 100/73; PULSE 98; RESP 16; O2SAT 100
[2022-08-28 14:33] VITALS: BP 100/73; PULSE 98; RESP 16; TEMP 35.7; O2SAT 100
== END 2022-08-28 14:44 | disposition short-term general hospital (02) ==
PROVIDERS: Emergency Provider Emergency Medicine; PCP Family Medicine; Visit Provider Emergency Medicine
DX: O99.891 Other specified diseases and conditions complicating pregnancy (principal); E88.89 Other specified metabolic disorders; N13.2 Hydronephrosis with renal and ureteral calculous obstruction; O99.282 Endocrine, nutritional and metabolic diseases complicating pregnancy, second trimester; Z3A.24 24 weeks gestation of pregnancy
CPT/HCPCS: 76770; 80048; 81001; 85025; 96361; 96374; 96375; 96376; 99283; J7030; A4216; J2405

== ENCOUNTER → 2022-09-09 | Outpatient (CLI) | payer OTHER, SELFPAY ==
[2022-09-09 09:53] LABS: Absolute Lymphocyte Count 1.58 X10^3/uL (0.83-4.51); Absolute Neutrophil Count 9.5 X10^3/uL (2.0-7.7); Basophil# 0.04 X10^3/uL; Basophil% 0.3 % (0-1); Eosinophil# 0.28 X10^3/uL; Eosinophils% 2.3 % (0-5); Hematocrit 34.9 % (37-47); Hemoglobin 11.6 g/dL (12.0-15.0); Lymphocyte # 1.58 X10^3/ul (0.83-4.51); Lymphocyte % 13.2 % (19-41); Mean Corp Hgb Conc 33.2 g/dL (32-36); Mean Corpuscular Hgb 29.6 pg (27.0-32.0); Mean Platelet Vol. 9.9 fl (6.2-12.0); Monocyte% 4.2 % (0-10); NRBC Flagged by Analyzer 0 % (0-5); Neutrophil # 9.54 X10^3/uL (2.7-7.7); Neutrophil % 79.6 % (47-70); Platelet Count 230 K/mm3 (150-450); RBC Distribution Width CV 13.4 % (11.6-14.6); RBC Distribution Width SD 43.8 fl (35.1-43.9); Red Blood Count 3.92 M/mm3 (4.2-5.4)
[2022-09-09 10:27] LABS: Glucose Challenge Gest 1H 50g 128 mg/dL (70-140)
[2022-09-09 11:00] LABS: HIV - WCH Non-Reactive (Nonreactive); Rubella IgG Reactive (Nonreactive); Syphilis Antibodies Non-reactive
== END | disposition home or self-care (01) ==
LOC: LAB 09:22
PROVIDERS: PCP Family Medicine; Referring Provider Nurse Practitioner Women's Health; Visit Provider Nurse Practitioner Women's Health
DX: O09.529 Supervision of elderly multigravida, unspecified trimester (principal); Z3A.00 Weeks of gestation of pregnancy not specified; Z13.1 Encounter for screening for diabetes mellitus
CPT/HCPCS: 36415; 82950; 85025; 86703; 86762; 86780

== ENCOUNTER → 2022-11-12 | Outpatient (CLI) | payer OTHER, SELFPAY | END | disposition home or self-care (01) | LOC: LABSPEC 11:46 | PROVIDERS: PCP Family Medicine; Referring Provider Obstetrics & Gynecology; Visit Provider Obstetrics & Gynecology | DX: Z34.90 Encounter for supervision of normal pregnancy, unspecified, unspecified trimester (principal) | CPT/HCPCS: 87081 ==

== ENCOUNTER → 2022-11-24 | Outpatient (CLI) | payer OTHER, SELFPAY ==
[2022-11-24 11:07] LABS: ROM Internal Control Test YES-OK TO RESULT pt. (Internal QC); ROM Patient Test Negative (Negative); Record Kit Lot#, ROM+ K1374
== END | disposition home or self-care (01) ==
LOC: LABSPEC 10:33
PROVIDERS: PCP Family Medicine; Referring Provider Registered Nurse; Visit Provider Registered Nurse
DX: O26.899 Other specified pregnancy related conditions, unspecified trimester (principal); N89.8 Other specified noninflammatory disorders of vagina; O99.891 Other specified diseases and conditions complicating pregnancy; Z3A.00 Weeks of gestation of pregnancy not specified
CPT/HCPCS: 84112

== ENCOUNTER → 2022-11-25 | Outpatient (CLI) | payer OTHER, SELFPAY ==
--- NOTE | 2022-11-25 18:26 | US_ITS ---
STUDY: SECOND AND THIRD TRIMESTER OBSTETRICAL ULTRASOUND - LIMITED REASON FOR EXAM: Female, 37 years old Growth LMP: Unknown. PRIOR ULTRASOUND: None. TECHNIQUE: Transabdominal TECHNICAL QUALITY: Adequate. FINDINGS: There is a single intrauterine fetus. The fetus is in a cephalic presentation. There is demonstrated cardiac activity with a heart rate of 141 bpm. There is increased amniotic fluid volume consistent with polyhydramnios. The largest amniotic fluid pocket measures 5.7 x 8.9 cm. The amniotic fluid index (CÉSAR) is 26.6 cm. The placenta is anterior in location and is not low lying. There are Grade 2 placental changes. The cervix is not visualized. BIOMETRY: BPD: 9.55 cm: 39 weeks, 0 days HC: 35.44 cm: 41 weeks, 3 days AC: 35.34 cm: 39 weeks, 2 days FL: 7.19 cm: 36 weeks, 6 days Age by LMP: 38 weeks, 3 days. ANGELIA by LMP: 12/06/2022. age by prior US: No prior ultrasound. age by current US: 39 weeks, 0 days. ANGELIA by current US: 12/02/2022. US/OB Limited With Biometrics IMPRESSION: Single intrauterine with ultrasound age of 39 weeks and 0 days and estimated date of delivery of 12/22/2022. Normal cardiac activity. Normal amniotic fluid. Anterior placenta. Vertex presentation. Electronically Signed: Cindy Salcido MD at 19:04 EDT ,
== END | disposition home or self-care (01) ==
LOC: US 18:26
PROVIDERS: PCP Family Medicine; Visit Provider Registered Nurse
DX: O26.849 Uterine size-date discrepancy, unspecified trimester (principal); Z3A.00 Weeks of gestation of pregnancy not specified
CPT/HCPCS: 76816

== ENCOUNTER 2022-11-28 09:23 | Inpatient (IN) | payer OTHER, SELFPAY ==
--- NOTE | 2022-11-27 | FALS_PTH ---
PATIENT: JOYCE AMANDA LOC: [facility] U#:[id number] AGE/SX: 37/F ROOM: [facility] RE11/28/[address]: Iesha Mullen CNM : 1985 BED: 1 DIS: 11/30/2022 SPEC #: [id number] RECD: 11/29/22 00:33 STATUS: CORRINE REQ #: [id number] CASIMIRO: 11/27/22 00:[address]: Holly Ocampo DEPT: SURGICAL PATHOLOGY RECD BY: Kwame Perez ENTERED: 11/30/22 10:03 SP TYPE: FALL TUBES OTHR DR: Dr. Cee Gar, MD Iesha Mullen CNM Tissues: Fallopian tube Procedures: Surgery Specimen Level II Comments: @ Ordering doctor for SUII edited from CLARITA to @ by KOKI at 11/30/22 1507 @ Submitting doctor edited from CLARITA to DR.SMARCA Barnes by KOKI at 11/30/22 1507 HEADER OPERATION: Tubal ligation PRE-OP DIAGNOSIS: Sterilization TISSUE SUBMITTED: Fallopian tubes, suture in right tube MICROSCOPIC DIAGNOSIS Right fallopian tube, salpingectomy: Complete cross-sections of fallopian tube with no pathologic change. Left fallopian tube, salpingectomy: Complete cross-sections of fallopian tube with no pathologic change. AM:james 12/01/2022 MICROSCOPIC DESCRIPTION Slides are reviewed. GROSS DESCRIPTION Received in fixative is one container labeled with the patient's name and designated bilateral fallopian tubes, suture in right tube. The specimen consists of bilateral fallopian tubes including fimbrial ends. The right fallopian tube measures 6.0 cm in length and 0.7 cm in diameter and left fallopian tube measures 7.0 cm in length and 0.6 cm in diameter. Sections reveal unremarkable cut surfaces. Maintenance Analyst sections are submitted in two cassettes as follows: 1 - right fallopian tube, 2 - left fallopian tube. / SJ:rg 11/30/2022 TC:4 CPT: 09219 x2
[2022-11-28] VITALS (20 sets, daily range): BP systolic 83–117; BP diastolic 46–78; PULSE 74–101; RESP 15–17; TEMP 36.1–36.7; O2SAT 94–100; BMI 27.3
[2022-11-28 09:10] LABS: ROM Internal Control Test YES-OK TO RESULT pt. (Internal QC)
[2022-11-28 09:11] LABS: ROM Patient Test POSITIVE (Negative); Record Kit Lot#, ROM+ K1374
--- NOTE | 2022-11-28 09:26 | HP.PCM.OB_ITS ---
HPI - General General Date of Admission: 11/28/22 HPI Narrative JOYCE AMANDA, is a 37 F who presents with SROM clear fluid irregular contractions. she was just diagnosed with polyhydramnios, EFW over 3500g. discussed RLTCS vs TOLAC. patient wishes to proceed with RLTCS Maternal Data Information ANGELIA Calculator Estimated Delivery Date Method Current WG Current Estimate 12/06/22 Ultrasound #1 38w 6d Other Estimates 12/14/22 LMP (Certain) 37w 5d PFSH PFSH Medical History (Updated 11/28/22 @ 10:[address] Holly Ocampo MD) Anxiety History of miscarriage Kidney disease No significant past medical history Home Medications vitamin#30 30 mg iron-10 mg iron-folic acid 1 mg-omg3 capsule 1 cap PO DAILY supplement 04/05/19 [History Last Taken 11/27/22 08:00 1 cap] Allergy/AdvReac Type Severity Reaction Status Date / Time No Known Allergies Allergy Verified 11/28/22 09:05 Family History Grandmother Breast cancer Grandmother Breast cancer Surgical History (Updated 11/28/22 @ 10:[address] 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 current occupational exposures/hazards: No pets and animals: Yes pets and animals: cat(s) and other details: pts mother changes litter box history of recent travel: No Smoking Status: Never smoker Electronic Cigarette Use: not used second hand exposure: No alcohol intake: current details: pre substance use type: does not use well-balanced diet: daily or most days caffeine: Yes what type of physical activity do you participate in: walking frequency: 5-6 times per week seatbelt use: always do you feel safe at home: Yes additional social history: 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 Date Name GA/Weeks Outcome Route Bth Weight Gen Labor Lgth Anesthesia Del Locatn Provider FOB 05/01/20 [place] 39 live - full term 7lbs 11oz Male [facility] Dr. Shahram Treviño Delivery Date: 05/01/20 Last Updated by: Katiuska Sarmiento Matheus Induced for poly, arrest of dilation Visit Details Expected Delivery Route/Plan TOLAC patient counseled regarding risks/benefits of trial of labor versus repeat . ACOG/uptodate education given to patient. 49 % likelihood of success per calculator TOLAC consent form signed: done 10/12 Labor Preferences- CB/BF classes: no labor support person: Hudson labor intervention preferences: [] pain management options preferred: [] cut cord/dad catch: [] : [] PP control planned: [] discussed possible routes of delivery and associated risks: [] special requests: [] Plans Covid status: discussed Flu vaccine: discussed Tdap vaccine: declined Rhogam: na LARC form signed: declined movement and labor precautions reviewed. Problem list reviewed and updated with the most current plan of care details and appropriate orders placed. Relevant counseling for the gestational age provided. Continue routine care and follow up unless otherwise noted in visit notes/problem list details OB Flowsheet Initial Weight: Not Recorded Date -?-?-?-?-?-?-?-?-?-?-?-?- EGA Weight BP Urine Prot -?-?-?-?-?-?-?-?-?-?-?-?- Glucose FHR FuHt Pres Dilation -?-?-?-?-?-?-?-?-?-?-?-?- Effaced St Visit Note 05/18/22 -?-?-?-?-?-?-?-?-?-?-?-?- 11w 1d 123 lb 6 oz 117/79 -?-?-?-?-?-?-?-?-?-?-?-?- 170 -?-?-?-?-?-?-?-?-?-?-?-?- SM- CRL 3.8cm no t cons with LMP 06/15/22 -?-?-?-?-?-?-?-?-?-?-?-?- 15w 1d 126 lb 2 oz 106/72 Nega tive -?-?-?-?-?-?-?-?-?-?-?-?- Negative 146 -?-?-?-?-?-?-?-?-?-?-?-?- MH-No Vb. Nausea improved. Doing well 07/13/22 -?-?-?-?-?-?-?-?-?-?-?-?- 19w 1d 129 lb 92/64 Negative -?-?-?-?-?-?-?-?-?-?-?-?- Negative 145 -?-?-?-?-?-?-?-?-?-?-?-?- SM- no vb SM- no vb cramping discussed abnormal us declines nipt testing 08/10/22 -?-?-?-?-?-?-?-?-?-?-?-?- 23w 1d 132 lb 2 oz 112/68 Nega tive -?-?-?-?-?-?-?-?-?-?-?-?- Negative 150 -?-?-?-?-?-?-?-?-?-?-?-?- -No Vb, LOF. Norma DIAZ. Some heartburn, reviewed meds 09/09/22 -?-?-?-?-?-?-?-?-?-?-?-?- 27w 3d 133 lb 4 oz 109/70 1+ -?-?-?-?-?-?-?-?-?-?-?-?- Negative 144 28 -?-?-?-?-?-?-?-?-?-?-?-?- JV- pt was admit [facility] last week for 9 mm stone that is not moving. has stent in place and urology wants to do a laser removal [facility]. They will coordinate [facility] there. 09/27/22 -?-?-?-?-?-?-?-?-?-?-?-?- 30w 0d 137 lb 6 oz 96/63 2+ -?-?-?-?-?-?-?-?-?-?-?-?- Negative 150 31 -?-?-?-?-?-?-?-?-?-?-?-?- SM- no vb lof go od fm n oregular ctx has procedure tuesday to remove stone 10/12/22 -?-?-?-?-?-?-?-?-?--?-?-?- 32w 1d 140 lb 105/72 Trace -?-?-?-?-?-?-?-?-?-?-?-?- Negative 145 33 -?-?-?-?-?-?-?-?-?-?-?-?- kw-+fm. no lof/v b/ctx. TOLAC consent signed. set up r c/s next visit. kw-+fm. no lof/vb/ctx. TOLAC consent signed. R C/S scheduled 10/29/22 -?-?-?-?-?-?-?-?-?-?-?-?- 34w 4d 144 lb 109/76 Negative -?-?-?-?-?-?-?-?-?-?-?-?- Negative 141 35 -?-?-?-?-?-?-?-?-?-?-?-?- JV- no lof, vagi nal bleeding, or dec fm. no complaints today. tolac discussed again. stalled at 9 cm with last . 11/12/22 -?-?-?-?-?-?-?-?-?-?-?-?- 36w 4d 145 lb 6 oz 111/73 Nega tive -?-?-?-?-?-?-?-?-?-?-?-?- Negative 140 38 Cephalic 0 -?-?-?-?-?-?-?-?-?-?-?-?- SM- no vb lof go od fm no regular ctx gbs collected discussed sterilization if RLTCS 11/16/22 -?-?-?-?-?-?-?-?-?-?-?-?- 37w 1d 146 lb 2 oz 122/83 Nega tive -?-?-?-?-?-?-?-?-?-?-?-?- Negative 140 39 Cephalic 0 -?-?-?-?-?-?-?-?-?-?-?-?- Sm- Sm- no vb lof good fm no reg ular ctx 11/24/22 -?-?-?-?-?-?-?-?-?-?-?-?- 38w 2d 151 lb 123/82 Negative -?-?-?-?-?-?-?-?-?-?-?-?- Negative 135 39 40 Cephalic 1.5 -?-?-?-?-?-?-?-?-?-?-?-?- 50 -2 LC-no vb, no reg ctx. lost mucus plug questionable lof. rom plus sent. roberto carlos/growth ordered difficult to feel parts hx of poly. NST FHR Rate Baby A Baseline: 130 Variability:: Moderate Accelerations:: 15 x 15 Decelerations:: None NST Reactive:: Yes FHR Category:: Category I Uterine Activity:: irregular ROS Constitutional Constitutional: Reports systems reviewed and no addt'l complaints, except as documented Eyes Eyes: Denies change in vision ENT HEENT: Reports systems reviewed and no addt'l complaints, except as documented; Denies headache(s) Cardiovascular Cardiovascular: Reports systems reviewed and no addt'l complaints, except as documented; Denies chest pain or dyspnea Respiratory/Chest Respiratory/Chest: Reports systems reviewed and no addt'l complaints, except as documented Gastrointestinal Gastrointestinal: Reports systems reviewed and no addt'l complaints, except as documented; Denies abdominal pain Genitourinary Genitourinary: Reports systems reviewed and no addt'l complaints, except as documented, contractions Details: present (irregular) and movement Details: present; Denies dysuria or genital lesions Musculoskeletal Musculoskeletal: Reports systems reviewed and no addt'l complaints, except as documented Neurologic Neurologic: Reports systems reviewed and no addt'l complaints, except as documented Endocrine Endocrinology: Reports systems reviewed and no addt'l complaints, except as documented Vital Signs Vital Signs Vital Signs: 11/28/22 09:00 11/28/22 09:00 11/28/22 09:00 Temperature Temperature Source Temporal Pulse Rate 93 Blood Pressure 110/73 BP Systolic 110 BP Diastolic 73 11/28/22 09:00 Temperature 96.9 F L Temperature Source Pulse Rate Blood Pressure BP Systolic BP Diastolic Weight Weight: 146 lb 13.246 oz Body Mass Index (BMI) 27.3 Physical Exam Const alert, oriented x3, no apparent distress and healthy appearing HEENT normocephalic and moist oral mucous membranes Head and Scalp: atraumatic Neck full ROM, no lymphadenopathy, supple and thyroid normal General: trachea midline Lymph Lymphatic: no lymphadenopathy noted Chest inspection of chest normal Resp normal respiratory effort Cardio regular rate GI normal to inspection, nondistended, normoactive bowel sounds, soft to palpation and non-tender Inspection: gravid external exam normal Manual OB Exam: estimated gestational size appropriate, presentation cephalic, dilated, effaced and station Extremity normal to inspection General Extremity: Negative for edema Skin no rashes or lesions noted Neuro no focal motor deficits and deep tendon reflexes 2+ bilaterally Motor Exam: strength 5/5 throughout and clonus absent Psych mental status grossly normal Labs Labs Labs: Blood Type O POSITIVE Antibody Screen NEGATIVE Hct 38.7 % (37-47) Hgb 12.9 g/dL (12.0-15.0) Obstetrics US Syphilis Total Ab Non-reactive Rubella IgG Antibody Reactive (Nonreactive) Hep Bs Antigen Non-Reactive (Nonreactive) Chlamydia DNA (TODD) Negative (Negative) Neisseria gonorrhoeae DNA (TODD) Negative (Negative) HIV 1&2 Antibody Non-Reactive (Nonreactive) Glucose 1 Hr 50 gm 128 mg/dL (70-140) Rhogam given: No Miscellaneous Test Assessment & Plan (1) Polyhydramnios: COMMENT: NST at 39 weeks, delivery in 39 weeks. IOL vs repeat cs based on cervical exam (2) History of polyhydramnios: (3) Sterilization: COMMENT: discussed BS if has RLTCS (4) Kidney stone complicating : COMMENT: stent placed, urology planning laser removal pending [facility] approval. having done 10/01 (5) Echogenic intracardiac focus of fetus on ultrasound: COMMENT: offered NIPT, declined. (6) Supervision of multigravida of advanced maternal age: COMMENT: PRR ANGELIA 12/06/22 girl Shirin MONTES Fam Spouse Hudson (7) : QUALIFIERS: Weeks of gestation: 38 weeks Qualified Code(s): Z3A.38 - 38 weeks gestation of COMMENT: GBS neg, genetic, carrier, ntd declined, anatomy reviewed. (8) History of delivery, currently : COMMENT: X1 FTP 9cm, discussed posisble TOLAC if spontaneous labor vs RLTCS. RLTCS scheduled for 12/13 @ 7:30 with SM (9) Anxiety during : COMMENT: counseling declined. (10) delivery delivered: COMMENT: RLTCS 39 poly girl Shirin PLAN: Plan plan RLTCS and BS
[2022-11-28] MEDS: Lactated Ringers 1,000 ML 999 ML IV ×2 (09:30→18:02)
[2022-11-28 09:49] LABS: Absolute Neutrophil Count 8.4 X10^3/uL (2.0-7.7); Basophil# 0.04 X10^3/uL; Basophil% 0.4 % (0-1); Eosinophil# 0.03 X10^3/uL; Eosinophils% 0.3 % (0-5); Hematocrit 38.7 % (37-47); Hemoglobin 12.9 g/dL (12.0-15.0); Lymphocyte % 14.9 % (19-41); Mean Corp Hgb Conc 33.3 g/dL (32-36); Mean Corpuscular Hgb 29.5 pg (27.0-32.0); Mean Corpuscular Volume 88.4 fL (81-99); Mean Platelet Vol. 11.8 fl (6.2-12.0); Monocyte% 5.6 % (0-10); NRBC Flagged by Analyzer 0 % (0-5); Neutrophil # 8.38 X10^3/uL (2.7-7.7); Neutrophil % 78.1 % (47-70); Platelet Count 128 K/mm3 (150-450); RBC Distribution Width CV 13.1 % (11.6-14.6); RBC Distribution Width SD 41.9 fl (35.1-43.9); Red Blood Count 4.38 M/mm3 (4.2-5.4); White Blood Count 10.7 K/mm3 (4.4-11.0)
--- NOTE | 2022-11-28 10:21 | OP.PCM_ITS ---
Assessment & Plan (1) delivery delivered: COMMENT: RLTCS SM 39 poly girl Shirin (2) SROM (spontaneous rupture of membranes): Maternal Data Information ANGELIA Calculator Estimated Delivery Date Method Current WG Current Estimate 12/06/22 Ultrasound #1 39w 0d Other Estimates 12/14/22 LMP (Certain) 37w 6d Final ANGELIA Source: LMP Details Operative Information Date of Procedure: 11/28/22 Pre-Operative Diagnosis: Previous SROM desired sterilization declined Post-Operative Diagnosis: same Indications for : Repeat Elective (and bilateral salpingectomy) Indications Narrative: Surgeon: Holly Ocampo MD Classification: MATTEO 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 Barrios catheter was placed. The patient was placed in the dorsal supine position with leftward tilt. Patient was prepped and draped in the normal sterile fashion. Pfannenstiel skin incision was made with the scalpel and carried through to the underlying layer of fascia with the scalpel. Fascia was nicked in the midline and the incision extended laterally. The rectus bellies were dissected off superiorly and inferiorly with out complication both sharply and bluntly. The peritoneum was entered digitally. The incision was stretched and a low transverse uterine incision was made with the scalpel. The infant's head was delivered atraumatically followed by the anterior and posterior shoulders without complication the rest of the delivered. The cord was clamped and cut and the was handed off to awaiting nurse. The placenta was delivered spontaneously immediately following and was noted to be intact and have a three- vessel cord. The uterus was exteriorized cleared of all clots and debris, and the incision was closed in a single layer closure using #1 Monocryl. uterine massage was employed with atony noted, the enlarged uterine volume from polyhydramnios was suspect for etiology. The ovaries and fallopian tubes were noted to be within normal limits. Patient had desired sterilization and was counseled preoperatively regarding irreversibility and permanency. Therefore bilateral fallopian tubes were elevated and transected across using a LigaSure device starting proximally to distally without complication the entire fallopian tubes were removed. The uterus was returned to the maternal abdomen and gutters were cleared of all clots and debris. The peritoneum was closed with 3-0 Monocryl in a running fashion. Gloves were changed prior to fascial closure. Fascia was closed with 0 PDS in a running fashion. Subcutaneous tissue was copiously irrigated and the skin was closed with 3-0 Monocryl in a subcuticular fashion. Mepilex dressing was applied without complication. Patient was taken to recovery in stable condition. Amniotic Membrane Rupture Type: Artificial Amniotic Fluid Description: Clear Placenta Disposition: [facility] Cord Vessel Description: 3 Vessels Delayed Cord Clamping: Yes Complications Risks of Surgery Discussed w/Patient: Bleeding, Infection, Need for Future C- Sections and Injury to surrounding structure(s) including bowel and bladder Vaginal Delivery Complication Complications: None Admit VTE Documentation VTE Present on Admission: No VTE Mechan Device Prophylaxis: SCD's Multi Select Codes Urinary/Genital Urinary/Genital CPT Codes: 99922 C/S+TL and 52182 Delivery [facility]
--- NOTE | 2022-11-28 10:23 | PCM.DC ---
Discharge Instructions Diet Discharge Diet: No restrictions Activity Discharge Activity: May Not Drive (for 2 weeks or while taking narcotic pain medications.), May Shower and May Take a Tub Bath (in 7 days) May shower in (days): 0 May resume sexual activity in: 4-6 weeks Weight Bearing Status: Full weight bearing Lifting Restrictions: 20 pounds Dressing / Incision Call your doctor if your incision/area has: Continuous Slow Oozing, Sudden Increased Bleeding, Increased Pain/ Swelling, Increased Redness and Foul Smelling Discharge Call your doctor if you observe: Fever of 101 or Higher and Using more than 1 pad per hour (for 2 hours) Suture Line Care: Avoid Pulling/Pushing and Avoid Pinching/Bending Cleanse incision/area with: Soap & Water and Keep Dressing Clean & Dry Follow Up Care Please Follow Up With: Holly Ocampo MD When: Call [phone] to make an appointment for an incision check in 1-2 weeks. Test Results: Test results from this visit will be discussed in further detail at your follow-up appointment, if applicable. Discharge Plan Admission Admit Date/Time: 11/28/22 09:23 Attending Provider: Iesha Mullen Primary Care Provider: Cee Gar Discharge Orders/Prescriptions Prescriptions: New oxycodone-acetaminophen [Percocet] 5-325 mg tablet 1 tab PO Q6H PRN (Reason: pain) 7 Days Qty: 20 0RF naproxen [naproxen] 500 mg tablet 500 mg PO BID PRN PRN (Reason: Pain) Qty: 30 1RF No Action vitamin#30 30 mg iron-10 mg iron-folic acid 1 mg-omg3 capsule 30 mg iron-10 mg iron-1 mg capsule 1 cap PO DAILY Referrals / Follow Up: Cee Gar MD [Primary Care Provider] - Disposition Disposition (needs filled in before D/C Order can be placed): Home, Self Care
[2022-11-28] MEDS: Sodium Citrate/Citric Acid 30 ML UDC PO (10:45)
[2022-11-28] MEDS: Lactated Ringers 1,000 ML 150 ML IV (10:45)
[2022-11-28] MEDS: Acetaminophen 500 MG Tablet 1000 MG PO ×3 (10:45→23:28)
[2022-11-28 11:11] LABS: Amphetamine Urine VISTA NEGATIVE (<1000 ng/mL); Barbiturate Urine VISTA NEGATIVE (< 200 ng/mL); Benzodiazepine Urine VISTA NEGATIVE (< 200 ng/mL); Cocaine Urine VISTA NEGATIVE (< 300 ng/mL); Ecstacy Urine VISTA NEGATIVE (< 500 ng/mL); Methadone Urine VISTA NEGATIVE (< 300 ng/mL); PCP Urine VISTA NEGATIVE (< 25 ng/mL); THC Urine VISTA NEGATIVE (< 50 ng/mL); Vista UDS pH Range 7
[2022-11-28] MEDS: Cefazolin 2 GM in 0.9% Normal Saline 100 ML IV (12:52)
[2022-11-28] MEDS: Methylergonovine 0.2 MG/ML Ampul IM (13:25)
[2022-11-28] MEDS: Oxytocin 15 Units/NS 250ml 15 UNITS/250 ML IV.SOLN 83 UNITS IV (14:10)
[2022-11-28] MEDS: Ketorolac 30 MG/ML Syringe IV ×2 (14:56→21:33)
[2022-11-28] MEDS: Lactated Ringers 1,000 ML 100 ML IV (21:33)
[2022-11-29] VITALS (7 sets, daily range): BP systolic 85–109; BP diastolic 52–66; PULSE 73–100; RESP 15–16; TEMP 36.2–36.5; O2SAT 98–100
[2022-11-29 00:35] LABS: Pathology Specimen OB SEE PATHOLOGY REPORT
[2022-11-29] MEDS: Ketorolac 30 MG/ML Syringe IV ×2 (03:17→09:43)
[2022-11-29] MEDS: Acetaminophen 500 MG Tablet 1000 MG PO ×4 (05:05→23:06)
[2022-11-29 05:34] LABS: Hematocrit 24.8 % (37-47); Hemoglobin 8.3 g/dL (12.0-15.0); Mean Corp Hgb Conc 33.5 g/dL (32-36); Mean Corpuscular Hgb 29.9 pg (27.0-32.0); Mean Corpuscular Volume 89.2 fL (81-99); Mean Platelet Vol. 11.1 fl (6.2-12.0); Platelet Count 122 K/mm3 (150-450); RBC Distribution Width CV 13.1 % (11.6-14.6); RBC Distribution Width SD 43.2 fl (35.1-43.9); Red Blood Count 2.78 M/mm3 (4.2-5.4); White Blood Count 11.9 K/mm3 (4.4-11.0)
--- NOTE | 2022-11-29 05:44 | PCM.PN.OB ---
Subjective Subjective Patient doing well without complaints. Tolerating PO. Ambulating and voiding without difficulty. Feeding well. Denies chest pain, shortness of breath, calf pain/swelling, fevers, chills, lightheadedness. Objective Data Objective Data Vital Signs: Vital Signs Temp Pulse Resp BP Pulse Ox O2 Del Method 97.4 F L 81 16 96/60 100 Room Air 11/29/22 03:00 11/29/22 03:00 11/29/22 03:00 11/29/22 03:53 11/29/22 03:00 11/29/22 03:00 Oxygen Delivery Method Room Air Weight: 146 lb 13.246 oz Body Mass Index (BMI) 27.3 Intake & Output: Intake and Output for Last 24 Hours 11/27/22 11/28/22 11/29/22 23:59 23:59 23:59 Intake Total 3005 / 3005 Output Total 900 / 900 550 / 550 Balance 2105 / 2105 -550 / -550 Lab / Micro Data Attestation: I reviewed the patient's lab results. 11/29/22 05:10 Labs: Laboratory Results - last 24 hr 11/28/22 08:42: Vag Amniotic Fld Detect POSITIVE H 11/28/22 09:30: WBC 10.7, RBC 4.38, Hgb 12.9, Hct 38.7, MCV 88.4, MCH 29.5, MCHC 33.3, RDW Std Deviation 41.9, RDW Coeff of Alf 13.1, Plt Count 128 L, MPV 11.8, Immature Gran % (Auto) 0.700, Neut % (Auto) 78.1 H, Lymph % (Auto) 14.9 L, [place] % (Auto) 5.6, Eos % (Auto) 0.3, Baso % (Auto) 0.4, Absolute Neuts (auto) 8.4 H, Absolute Lymphs (auto) 1.60, Nucleated RBC % 0, Blood Type O POSITIVE, Antibody Screen NEGATIVE 11/28/22 10:30: Urine Opiates Screen NEGATIVE, Urine Methadone Screen NEGATIVE, Ur Barbiturates Screen NEGATIVE, Ur Phencyclidine Scrn NEGATIVE, Ur Amphetamines Screen NEGATIVE, MDMA (Ecstasy) Screen NEGATIVE, U Benzodiazepines Scrn NEGATIVE, Urine Cocaine Screen NEGATIVE, U Cannabinoids Screen NEGATIVE, Ur Drug Screen Comment 11/29/22 05:10: WBC 11.9 H, RBC 2.78 L, Hgb 8.3 L, Hct 24.8 L, MCV 89.2, MCH 29.9, MCHC 33.5, RDW Std Deviation 43.2, RDW Coeff of Alf 13.1, Plt Count 122 L, MPV 11.1 ROS Constitutional Constitutional: Reports systems reviewed and no addt'l complaints, except as documented; Denies anorexia or headache(s) Cardiovascular Cardiovascular: Reports systems reviewed and no addt'l complaints, except as documented; Denies dizziness, dyspnea, nausea or tachypnea Respiratory/Chest Respiratory/Chest: Reports systems reviewed and no addt'l complaints, except as documented; Denies cough, dyspnea, shortness of breath at rest or tachypnea Gastrointestinal Gastrointestinal: Reports systems reviewed and no addt'l complaints, except as documented; Denies abdominal pain, constipation or nausea Genitourinary Genitourinary: Reports systems reviewed and no addt'l complaints, except as documented; Denies burning urination, difficulty urinating, dysuria, urinary frequency or urinary incontinence Musculoskeletal Musculoskeletal: Reports systems reviewed and no addt'l complaints, except as documented Integumentary Integumentary: Reports systems reviewed and no addt'l complaints, except as documented Neurologic Neurologic: Reports systems reviewed and no addt'l complaints, except as documented; Denies abnormal speech, dizziness or headache(s) Psychiatric Psychiatric: Reports systems reviewed and no addt'l complaints, except as documented Endocrine Endocrinology: Reports systems reviewed and no addt'l complaints, except as documented Hematologic/Lymphatic Hematologic/Lymphatic: Reports systems reviewed and no addt'l complaints, except as documented Physical Exam Const alert, oriented x3 and no apparent distress Neck full ROM Resp normal respiratory effort, normal air movement and no retractions Effort and Inspection: able to speak in complete sentences and symmetric chest movement GI soft to palpation Inspection: incision intact Bladder / Kidney Exam: bladder normal to palpation Uterus Palpation: uterus fundus firm Extremity normal to inspection and full ROM Psych mental status grossly normal, thought process normal and cooperative Assessment & Plan (1) SROM (spontaneous rupture of membranes): (2) delivery delivered: COMMENT: RLTCS SM 39 poly girl Shirin PLAN: s/p LTCS PPD # 1 1. routine post care 2. breast feeding- support given 3. rh positive 4. rubella immune 5. IV Venofer for decrease in HGB from 12.9 to 8.3 Charges/Coding Multi Select Codes Urinary/Genital Urinary/Genital CPT Codes: No Charge
[2022-11-29] MEDS: Sodium Ferric Gluconat 125 MG in 0.9% Normal Saline 100 ML 110 MG IV (06:26)
[2022-11-29] MEDS: Senna/Docusate Sodium 1 Tablet PO (09:42)
[2022-11-29] MEDS: 0.9% Saline Lock 10 ML Syringe IV (09:43)
[2022-11-29 10:14] LABS: Absolute Lymphocyte Count 1.09 X10^3/uL (0.83-4.51); Absolute Neutrophil Count 8.8 X10^3/uL (2.0-7.7); Basophil# 0.02 X10^3/uL; Basophil% 0.2 % (0-1); Eosinophil# 0.04 X10^3/uL; Eosinophils% 0.4 % (0-5); Hematocrit 25.5 % (37-47); Hemoglobin 8.6 g/dL (12.0-15.0); Lymphocyte # 1.09 X10^3/ul (0.83-4.51); Lymphocyte % 10.4 % (19-41); Mean Corp Hgb Conc 33.7 g/dL (32-36); Mean Corpuscular Volume 88.9 fL (81-99); Mean Platelet Vol. 11.2 fl (6.2-12.0); Monocyte# 0.39 X10^3/uL; Monocyte% 3.7 % (0-10); NRBC Flagged by Analyzer 0 % (0-5); Neutrophil # 8.83 X10^3/uL (2.7-7.7); Neutrophil % 84.5 % (47-70); Platelet Count 126 K/mm3 (150-450); RBC Distribution Width CV 13.3 % (11.6-14.6); RBC Distribution Width SD 42.9 fl (35.1-43.9); Red Blood Count 2.87 M/mm3 (4.2-5.4); White Blood Count 10.5 K/mm3 (4.4-11.0)
[2022-11-29] MEDS: Prenatal Vits Tablet 1 TABLET PO (12:36)
[2022-11-29] MEDS: Naproxen 500 MG Tablet PO ×2 (15:30→23:07)
[2022-11-30 02:32] VITALS: BP 96/62; PULSE 91; RESP 16; TEMP 36.9; O2SAT 99
[2022-11-30] MEDS: Naproxen 500 MG Tablet PO (04:59)
[2022-11-30] MEDS: Acetaminophen 500 MG Tablet 1000 MG PO (05:00)
[2022-11-30 05:13] LABS: Absolute Lymphocyte Count 1.07 X10^3/uL (0.83-4.51); Absolute Neutrophil Count 10.9 X10^3/uL (2.0-7.7); Basophil# 0.02 X10^3/uL; Basophil% 0.2 % (0-1); Eosinophil# 0.14 X10^3/uL; Eosinophils% 1.1 % (0-5); Hematocrit 23.5 % (37-47); Hemoglobin 7.8 g/dL (12.0-15.0); Lymphocyte # 1.07 X10^3/ul (0.83-4.51); Lymphocyte % 8.3 % (19-41); Mean Corp Hgb Conc 33.2 g/dL (32-36); Mean Corpuscular Hgb 29.8 pg (27.0-32.0); Mean Corpuscular Volume 89.7 fL (81-99); Mean Platelet Vol. 10.2 fl (6.2-12.0); Monocyte# 0.61 X10^3/uL; Monocyte% 4.7 % (0-10); NRBC Flagged by Analyzer 0 % (0-5); Neutrophil # 10.93 X10^3/uL (2.7-7.7); Neutrophil % 84.8 % (47-70); Platelet Count 136 K/mm3 (150-450); RBC Distribution Width CV 13.7 % (11.6-14.6); RBC Distribution Width SD 44.6 fl (35.1-43.9); Red Blood Count 2.62 M/mm3 (4.2-5.4); White Blood Count 12.9 K/mm3 (4.4-11.0)
--- NOTE | 2022-11-30 06:08 | PCM.PN.OB ---
Subjective Subjective Patient doing well without complaints. Tolerating PO. Ambulating and voiding without difficulty. feeding well. Denies chest pain, shortness of breath, calf pain/swelling, fevers, chills, lightheadedness. Objective Data Objective Data Vital Signs: Vital Signs Temp Pulse Resp BP Pulse Ox O2 Del Method 98.5 F 91 16 96/62 99 Room Air 11/30/22 02:32 11/30/22 02:32 11/30/22 02:32 11/30/22 02:32 11/30/22 02:32 11/30/22 02:32 Oxygen Delivery Method Room Air Weight: 146 lb 13.246 oz Body Mass Index (BMI) 27.3 Intake & Output: Intake and Output for Last 24 Hours 11/28/22 11/29/22 11/30/22 23:59 23:59 23:59 Intake Total 3005 / 3005 1110 / 1110 Output Total 900 / 900 1550 / 1550 Balance 2105 / 2105 -440 / -440 Lab / Micro Data 11/30/22 05:05 Labs: Laboratory Results - last 24 hr 11/29/22 10:00: WBC 10.5, RBC 2.87 L, Hgb 8.6 L, Hct 25.5 L, MCV 88.9, MCH 30.0, MCHC 33.7, RDW Std Deviation 42.9, RDW Coeff of Alf 13.3, Plt Count 126 L, MPV 11.2, Immature Gran % (Auto) 0.800, Neut % (Auto) 84.5 H, Lymph % (Auto) 10.4 L, [place] % (Auto) 3.7, Eos % (Auto) 0.4, Baso % (Auto) 0.2, Absolute Neuts (auto) 8.8 H, Absolute Lymphs (auto) 1.09, Nucleated RBC % 0 11/30/22 05:05: WBC 12.9 H, RBC 2.62 L, Hgb 7.8 L, Hct 23.5 L, MCV 89.7, MCH 29.8, MCHC 33.2, RDW Std Deviation 44.6 H, RDW Coeff of Alf 13.7, Plt Count 136 L, MPV 10.2, Immature Gran % (Auto) 0.900, Neut % (Auto) 84.8 H, Lymph % (Auto) 8.3 L, [place] % (Auto) 4.7, Eos % (Auto) 1.1, Baso % (Auto) 0.2, Absolute Neuts (auto) 10.9 H, Absolute Lymphs (auto) 1.07, Nucleated RBC % 0 ROS Constitutional Constitutional: Reports systems reviewed and no addt'l complaints, except as documented Cardiovascular Cardiovascular: Reports systems reviewed and no addt'l complaints, except as documented Respiratory/Chest Respiratory/Chest: Reports systems reviewed and no addt'l complaints, except as documented Gastrointestinal Gastrointestinal: Reports systems reviewed and no addt'l complaints, except as documented Physical Exam Const alert, oriented x3 and no apparent distress HEENT Head and Scalp: atraumatic Resp normal respiratory effort GI soft to palpation and non-tender Inspection: incision intact, healing well and drainage (none) Bimanual Exam - Vag & Uterus: uterus non-tender Uterus Palpation: uterus fundus firm (below Umbilicus) Assessment & Plan (1) SROM (spontaneous rupture of membranes): (2) delivery delivered: COMMENT: RLTCS SM 39 poly girl Shirin (3) Acute postoperative anemia due to greater than expected blood loss: COMMENT: IV iron given, dc home on oral iron (4) Uterine atony: COMMENT: secondary to polyhydramnios PLAN: Plan s/p LTCS PPD # 2 1. routine post care 2. breast feeding- support given 3. rh positive 4. rubella immune
[2022-11-30 07:27] VITALS: BP 101/66; PULSE 72; RESP 15; TEMP 36.4; O2SAT 98
--- NOTE | 2022-11-30 09:51 | CASEMGMT ---
Social Work Assessment Labor and Delivery Unit Patient Address: [address] [place] [address] Phone number: [phone] Date of Referral: 11/30/22 Time of Referral:?829 Referred By: Bedside nursing staff, charge nurse Date of Intervention: ?11/30/22? Time of Intervention:? 914 Reason for Referral:? Anxiety Sw completed chart review. Sw presented to bedside and introduced self to parents, mother of baby (MOB- Giselle) and father of baby (FOB- Hudson). Sw explained reason for sw involvement at this time. Sw completed psychosocial assessment. Sw asked FOB to step out momentarily so that MOB could complete the [place] Depression Scale. FOB did so respectfully. History obtained from: medical records, MOB and FOB. Household composition: Currently residing in the home is TERRIE SOFIA, their first child (Amawalk: : 05/01/2020) and now baby girl. Parents deny that anyone else resides with them at this time. MOB states that housing is adequate, no issues or concerns. Patient's parent/guardian status:?Parents state that they met while working together, they have been together for 7/8 years and for 5. When meeting with MOB privately, she denies any concerns of domestic violence or intimate partner violence. Medical History: KIMBERLYN is 6, para 1- now 2. MOB presented with intention to go through a trial of labor, however decided it was best to schedule . Baby girl was born on 11/28/22 via repeat . Baby girl, named Shirin Gottlieb was born weighing 7lb 15oz and her apgars were 8 and 9 at one and five minutes of life. MOB states that she is breast feeding and it is going really well. MOB states that she has a pump for at home. Educational Status:?Both parents are high school graduates. FOB states that he has some college education, but did not graduate. Parents deny issues with comprehension, reading, learning, etc. Financial Status: FOB is gainfully employed outside of the home, he works at an [employer]. MOB is a stay at home mom. FOB states that he is able to take 2 weeks off of work now that the baby has been born. Supplies: MOB states that they have obtained everything they need for baby including: crib, car seat, clothes, diapers, wipes and a breast pump. Childcare/Caregiver(s):? KIMBERLYN is the primary caregiver to baby, and FOKathryn will also help outside of his work hours. Parents state that they have a lot of natural supports found in both sets of grandparents. Transportation:?? Both parents has a drivers license and reliable transportation. No transportation barriers at this time. Programs/Agencies Involved: ???MOB states that they are over income for financial supports provided through community agencies. Children Services/Legal Issues:??No former involvement with children services. No issues or concerns that warrant a referral to be made at this time. ? Behavioral Health Issues: ??Mental Health History:???FOKathryn denies menta health history. KIMBERLYN states that she has a history of social anxiety. KIMBERLYN states that she did experience some baby blues following the of her first baby, however those symptoms did not last long. Sw educated parents on signs and symptoms of baby blues and post depression. MOB completed [place] Depression Scale. KIMBERLYN's score was a 5. Sw educated MOB on her score and encouraged her to utilize coping skills that work for her on a regular basis. KIMBERLYN stated that she normally can manage her anxiety with deep breathing- she is not on any medications. Substance Use History:?KIMBERLYN denies substance use prior to and during . KIMBERLYN states that she did have a kidney stone during and pain medication was prescribed however she did not take any, she managed her symptoms at that time with tylenol. ? Family History: Parents deny family history of substance use and mental health diagnoses. ? Drug Screens: Drug screen at admission was negative for all substances. Family/Social Stressors:?Parents deny any concerns or stressors at this time. Support Systems: KIMBERLYN states that her parents and FOB parents are all involved and extremely supportive. KIMBERLYN states that she also has a close friend who experienced the baby blues/ depression earlier this year. KIMBERLYN states that if she needs someone to talk to, she knows that her friend would be a good support for her. Depression/Shaken Baby/Safe Sleeping:?Sw educated parents on signs and symptoms of baby blues and depression/ anxiety to be on the look out for. Sw encouraged parents to talk about ways that FOB could be supportive and helpful during this period should MOB experience either of these. Parents expressed understanding. Sw educated parents on shaken baby prevention and ABCs of safe sleep. Parents expressed understanding. ASSESSMENT:?MOB was engaged in conversation with sw, although neither parent was overcoming with information. Parents were observed to be attentive to baby girl in loving manner. Parents were receptive to sw involvement and support. MOB and FOB expressed eagerness at ability to be discharged soon. Parents have supports in place and were receptive to support and education that sw provided to them. PLAN:? MOB and baby to be discharged today. ?No other services requested or indicated. Kristine Thapa, [employer], [employer]WORK [employer]ER
[2022-11-30 14:52] LABS: Syphilis Antibodies Non-reactive
== END 2022-11-30 10:30 | disposition home or self-care (01) | DRG 784 ==
LOC: WP 10:26 → WPOUT 11-30 12:46
PROVIDERS: Obstetrics & Gynecology; Admitting Provider Advanced Practice Midwife; PCP Family Medicine; Visit Provider Advanced Practice Midwife
DX: O34.211 Maternal care for low transverse scar from previous cesarean delivery (principal); D62 Acute posthemorrhagic anemia; F41.9 Anxiety disorder, unspecified; O99.344 Other mental disorders complicating childbirth; Z37.0 Single live birth; O90.81 Anemia of the puerperium; O62.2 Other uterine inertia; O40.3XX0 Polyhydramnios, third trimester, not applicable or unspecified; O42.92 Full-term premature rupture of membranes, unspecified as to length of time between rupture and onset of labor; O99.892 Other specified diseases and conditions complicating childbirth; N20.0 Calculus of kidney; O35.8XX0 Maternal care for other (suspected) fetal abnormality and damage, not applicable or unspecified; Z96.0 Presence of urogenital implants; Z3A.39 39 weeks gestation of pregnancy; Z30.2 Encounter for sterilization; Z87.59 Personal history of other complications of pregnancy, childbirth and the puerperium
CPT/HCPCS: 59025; 59050; 80307; 84112; 85025; 85027; 86780; 86850; 86900; 86901; 88302; 99221; J7120; A4216; G0378; J2405; J2916

== ENCOUNTER → 2022-12-13 | Outpatient (CLI) | payer OTHER, SELFPAY ==
[2022-12-13 11:43] LABS: Absolute Lymphocyte Count 1.88 X10^3/uL (0.83-4.51); Absolute Neutrophil Count 4.6 X10^3/uL (2.0-7.7); Basophil# 0.02 X10^3/uL; Basophil% 0.3 % (0-1); Eosinophil# 0.19 X10^3/uL; Eosinophils% 2.7 % (0-5); Hematocrit 35.4 % (37-47); Hemoglobin 11.6 g/dL (12.0-15.0); Lymphocyte # 1.88 X10^3/ul (0.83-4.51); Lymphocyte % 26.4 % (19-41); Mean Corp Hgb Conc 32.8 g/dL (32-36); Mean Corpuscular Hgb 29.6 pg (27.0-32.0); Mean Corpuscular Volume 90.3 fL (81-99); Monocyte# 0.39 X10^3/uL; Monocyte% 5.5 % (0-10); NRBC Flagged by Analyzer 0 % (0-5); Neutrophil # 4.62 X10^3/uL (2.7-7.7); Neutrophil % 64.8 % (47-70); Platelet Count 323 K/mm3 (150-450); RBC Distribution Width CV 12.8 % (11.6-14.6); RBC Distribution Width SD 42.5 fl (35.1-43.9); Red Blood Count 3.92 M/mm3 (4.2-5.4); White Blood Count 7.1 K/mm3 (4.4-11.0)
== END | disposition home or self-care (01) ==
PROVIDERS: PCP Family Medicine; Referring Provider Nurse Practitioner Women's Health; Visit Provider Nurse Practitioner Women's Health
DX: D64.9 Anemia, unspecified (principal)
CPT/HCPCS: 36415; 85025

== ENCOUNTER → 2024-04-30 | Outpatient (CLI) | payer OTHER, SELFPAY ==
[2024-05-04 11:08] LABS: HPV APTIMA, High Risk Negative (Negative)
== END | disposition home or self-care (01) ==
LOC: LABSPEC 16:05
PROVIDERS: PCP Family Medicine; Referring Provider Obstetrics & Gynecology; Visit Provider Obstetrics & Gynecology
DX: Z12.4 Encounter for screening for malignant neoplasm of cervix (principal)
CPT/HCPCS: 87624; 88175; G0145